=== PATIENT | male | born 1960 | race Caucasian/White ===

== ENCOUNTER → 2017-02-04 | Outpatient (CLI) | payer MEDICARE, OTHER ==
--- NOTE | 2017-02-05 09:31 | PN ---
57-year-old male patient coming in for a follow-up regarding his obstructive sleep apnea. The patient was diagnosed having mild to moderate ARIANA with an AHI of 15.8. He is also known to have chronic bronchitis/asthmatic bronchitis. I offered this patient CPAP therapy at a pressure of 11 cm of water. I noted that the patient is having some occasional difficulties. On today's evaluation, the patient is also bronchospastic and wheezy and is having some exacerbation of his acute asthmatic bronchitis. Note that he has been also gaining weight and I have noted at least 22 pounds weight since his last evaluation. I checked his CPAP compliance data, and over the past 30 days' his compliancy for more than 4 hours was only 33%. His average CPAP use on total days was 2 hours and 41 minutes and total days use was 6 hours and 42 minutes. His AHI while on treatment is down to 2.0. His leak factor is only 1.6 liters. I suspect as part of his poor compliance has been his increased shortness of breath and asthmatic bronchitis. His current vital signs are as follows: His temperature is 98.6, pulse 84, respirations 16, BP is 110/75. BMI is 46.3. Weight is 287. Height is 5 foot 6. GENERAL APPEARANCE: Obese, calm, comfortable. HEENT: Short neck, crowding posterior pharynx. There is no goiter or neck masses. LUNGS: Diminished breath sounds bilaterally. Scattered expiratory wheezes and prolongation of expiratory phase of breathing. HEART: Heart sounds are regular rate. Normal S1, S2. ABDOMEN: Soft, nontender. No organomegaly. EXTREMITIES: No edema. No cyanosis or clubbing. IMPRESSION: 1. Symptomatic obstructive sleep apnea with an AHI of 15.8 currently on CPAP pressure of 11 cm of water. 2. Chronic asthmatic bronchitis with acute exacerbation. 3. Difficulties in tolerating the CPAP. 4. Hypersomnia. 5. Obesity with interval weight gain in the order of 21 to 22 pounds. PLAN: 1. Encourage weight loss. 2. Optimize exacerbation of chronic asthmatic bronchitis by Symbicort and a prednisone burst taper to be started x 40 mg and tapered x 10 mg every 3 days. 3. Continue Simplus full face mask. 4. Lower the CPAP pressure down to 10 cm of water. 5. Encourage weight loss. 6. See me back in 4 to 6 weeks' time in follow-up. 7. Anticipate improvement in his compliancy data.
== END ==
LOC: SLEEP 14:33
PROVIDERS: ATTEND Internal Medicine Critical Care Medicine
DX: G47.33 Obstructive sleep apnea (adult) (pediatric) (principal); J45.901 Unspecified asthma with (acute) exacerbation; G47.10 Hypersomnia, unspecified; E66.9 Obesity, unspecified

== ENCOUNTER 2017-03-17 15:00 | Inpatient (IN) | payer MEDICARE, OTHER ==
--- NOTE | 2017-03-17 15:12 | ED ---
General Adult HPI - General Source: patient Mode of arrival: wheelchair Limitations: no limitations <Claudio Alcocer - Last Filed: 03/17/17 15:12> - General Source: patient, family, RN notes reviewed <Parmjit Leach - Last Filed: 03/17/17 17:00> - General Chief complaint: Chest Pain Stated complaint: Chest Pain - History of Present Illness Initial comments: 57-year-old male presents with a two-hour history of upper chest pain and bilateral shoulder pain. Patient describes the pain as dull. Associated with shortness of breath. Denies cough. Denies palpitations. Chest pain began at rest. No family history of CAD myocardial infarction. Patient does have a remote tobacco history, quit 2 years ago. Patient believes the stress test is really is several weeks ago. Denies nausea, denies vomiting or diarrhea. Past medical history of COPD and obstructive sleep apnea. (Parmjit Leach) - Related Data Home Medications Medication Instructions Recorded Confirmed Omeprazole [PriLOSEC] 20 mg PO AC-BID 05/29/16 03/17/17 QUEtiapine [SEROquel] 200 mg PO HS 05/29/16 03/17/17 Budesonide-Formot 160-4.5 Mcg 2 puff INHALATION RT-BID 03/17/17 03/17/17 [Symbicort 160-4.5 Mcg Inhaler] Levothyroxine Sodium 25 mcg PO DAILY 03/17/17 03/17/17 Sertraline [Zoloft] 50 mg PO DAILY 03/17/17 03/17/17 Allergies Allergy/AdvReac Type Severity Reaction Status Date / Time No Known Allergies Allergy Verified 03/17/17 15:52 Review of Systems ROS Other: All systems not noted in ROS Statement are negative. <Claudio Alcocer - Last Filed: 03/17/17 15:12> ROS Other: All systems not noted in ROS Statement are negative. Cardiovascular: Reports: chest pain. Denies: palpitations <Parmjit Leach - Last Filed: 03/17/17 17:00> ROS Statement: Those systems with pertinent positive or pertinent negative responses have been documented in the HPI. Past Medical History Past Medical History: COPD, GERD/Reflux, Osteoarthritis (OA), Pneumonia History of Any Multi-Drug Resistant Organisms: None Reported Past Surgical History: Orthopedic Surgery Additional Past Surgical History / Comment(s): lt rotator cuff,02, lt hip replacment 1999, colonoscopy/plypectomy(benign), rt hand sx had pins removed Past Anesthesia/Blood Transfusion Reactions: No Reported Reaction Past Psychological History: Anxiety Smoking Status: Former smoker Past Alcohol Use History: Occasional Past Drug Use History: Marijuana, Methamphetamine - Past Family History Father Family Medical History: CVA/TIA, Diabetes Mellitus Additional Family Medical History / Comment(s): dads brothers x 2 had strokes as well as 1 sister Mother Family Medical History: Eye Disorder, Osteoarthritis (OA) Additional Family Medical History / Comment(s): cataracts <Claudio Alcocer - Last Filed: 03/17/17 15:12> General Exam Limitations: no limitations <Claudio Alcocer - Last Filed: 03/17/17 15:12> Limitations: no limitations General appearance: alert, in no apparent distress Head exam: Present: atraumatic, normocephalic Eye exam: Present: normal appearance, PERRL ENT exam: Present: normal exam, mucous membranes moist Neck exam: Present: normal inspection, full ROM. Absent: tenderness Respiratory exam: Present: normal lung sounds bilaterally. Absent: respiratory distress Cardiovascular Exam: Present: normal rhythm, tachycardia GI/Abdominal exam: Present: soft, distended. Absent: tenderness, guarding Neurological exam: Present: alert, oriented X3, CN II-XII intact. Absent: motor sensory deficit Psychiatric exam: Present: normal affect, normal mood Skin exam: Present: warm, diaphoretic <Parmjit Leach - Last Filed: 03/17/17 17:00> Course <Claudio Alcocer C - Last Filed: 03/17/17 15:12> <Parmjit Leach - Last Filed: 03/17/17 17:00> Vital Signs 03/17/17 03/17/17 03/17/17 15:08 15:20 15:53 Temperature 98.6 F Pulse Rate 65 92 Pulse Rate [ 187 H Scrap Sawyer ] Respiratory 17 Rate Blood Pressure 104/76 O2 Sat by Pulse 96 Oximetry - Reevaluation(s) Reevaluation #1: 03/17/17 16:56 After adenosine and return to normal sinus rhythm, patient's chest pain and bilateral shoulder pain has resolved. (Parmjit Leach) EKG Findings - EKG Comments: EKG Findings:: EKG obtained at 1519 shows superventricular tachycardia with a ventricular rate of 173, QRS duration is 80, QTc is 441. EKG obtained at 1535 status post adenosine shows sinus tachycardia with a ventricular rate of 4, TX interval 142, QRS duration 84, QTC 428, no signs of ST segment elevation or depression. EKG obtained at 1614 shows normal sinus rhythm with a ventricular 94, TX interval 138, QRS duration 84, QTC 445, no T-wave abnormality, no ST segment elevation. <Parmjit Leach - Last Filed: 03/17/17 17:00> Medical Decision Making <Claudio Alcocer - Last Filed: 03/17/17 15:12> - Lab Data Result diagrams: 03/17/17 15:30 03/17/17 15:30 <Parmjit Leach - Last Filed: 03/17/17 17:00> - Medical Decision Making 57-year-old male presenting with upper chest pain and bilateral shoulder pain. Patient is found to be in SVT with a ventricular rate of 173. IV is established and patient is given adenosine 6N saw by 12 mg with return to normal sinus rhythm. Several minutes after return to sinus rhythm patient is pain-free. Denies chest pain or shortness of breath. Patient has brief episode of bigeminy with a ventricular rate in the 170s on the monitor. However after the nasal replaced and repeat EKG is obtained there is normal sinus rhythm with no bigeminy, no tachycardia. Laboratory studies including cardiac enzymes are within normal limits. Given the patient's chest pain with tachycardia he will be placed in observation for serial cardiac enzymes and cardiology consult. Chest x-ray shows no acute process. (Parmjit Leach) - Lab Data Lab Results 03/17/17 03/17/17 03/17/17 Range/Units 15:30 15:30 15:30 WBC 10.9 H (3.8-10.6) k/uL RBC 5.77 (4.30-5.90) m/uL Hgb 13.3 (13.0-17.5) gm/dL Hct 44.0 (39.0-53.0) % MCV 76.3 L (80.0-100.0) fL MCH 23.0 L (25.0-35.0) pg MCHC 30.1 L (31.0-37.0) g/dL RDW 16.8 H (11.5-15.5) % Plt Count 309 (150-450) k/uL Neutrophils % 71 % Lymphocytes % 21 % Monocytes % 5 % Eosinophils % 1 % Basophils % 1 % Neutrophils # 7.8 H (1.3-7.7) k/uL Lymphocytes # 2.3 (1.0-4.8) k/uL Monocytes # 0.5 (0-1.0) k/uL Eosinophils # 0.1 (0-0.7) k/uL Basophils # 0.1 (0-0.2) k/uL Hypochromasia Marked Anisocytosis Slight Microcytosis Slight PT (9.0-12.0) sec INR (<1.2) APTT (22.0-30.0) sec Sodium 141 (137-145) mmol/L Potassium 4.0 (3.5-5.1) mmol/L Chloride 108 H (98-107) mmol/L Carbon Dioxide 21 L (22-30) mmol/L Anion Gap 12 mmol/L BUN 13 (9-20) mg/dL Creatinine 1.25 (0.66-1.25) mg/dL Est GFR (MDRD) Af Amer >60 (>60 ml/min/1.73 sqM) Est GFR (MDRD) Non-Af 59 (>60 ml/min/1.73 sqM) Glucose 115 H (74-99) mg/dL Calcium 9.4 (8.4-10.2) mg/dL Magnesium 1.9 (1.6-2.3) mg/dL Total Bilirubin 0.5 (0.2-1.3) mg/dL AST 30 (17-59) U/L ALT 37 (21-72) U/L Alkaline Phosphatase 89 (38-126) U/L Total Creatine Kinase 204 H (55-170) U/L CK-MB (CK-2) 0.5 (0.0-2.4) ng/mL CK-MB (CK-2) Rel Index 0.2 Troponin I <0.012 (0.000-0.034) ng/mL NT-Pro-B Natriuret Pep pg/mL Total Protein 7.6 (6.3-8.2) g/dL Albumin 4.5 (3.5-5.0) g/dL 03/17/17 03/17/17 Range/Units 15:30 15:30 WBC (3.8-10.6) k/uL RBC (4.30-5.90) m/uL Hgb (13.0-17.5) gm/dL Hct (39.0-53.0) % MCV (80.0-100.0) fL MCH (25.0-35.0) pg MCHC (31.0-37.0) g/dL RDW (11.5-15.5) % Plt Count (150-450) k/uL Neutrophils % % Lymphocytes % % Monocytes % % Eosinophils % % Basophils % % Neutrophils # (1.3-7.7) k/uL Lymphocytes # (1.0-4.8) k/uL Monocytes # (0-1.0) k/uL Eosinophils # (0-0.7) k/uL Basophils # (0-0.2) k/uL Hypochromasia Anisocytosis Microcytosis PT 10.4 (9.0-12.0) sec INR 1.0 (<1.2) APTT 25.0 (22.0-30.0) sec Sodium (137-145) mmol/L Potassium (3.5-5.1) mmol/L Chloride (98-107) mmol/L Carbon Dioxide (22-30) mmol/L Anion Gap mmol/L BUN (9-20) mg/dL Creatinine (0.66-1.25) mg/dL Est GFR (MDRD) Af Amer (>60 ml/min/1.73 sqM) Est GFR (MDRD) Non-Af (>60 ml/min/1.73 sqM) Glucose (74-99) mg/dL Calcium (8.4-10.2) mg/dL Magnesium (1.6-2.3) mg/dL Total Bilirubin (0.2-1.3) mg/dL AST (17-59) U/L ALT (21-72) U/L Alkaline Phosphatase (38-126) U/L Total Creatine Kinase (55-170) U/L CK-MB (CK-2) (0.0-2.4) ng/mL CK-MB (CK-2) Rel Index Troponin I (0.000-0.034) ng/mL NT-Pro-B Natriuret Pep 82 pg/mL Total Protein (6.3-8.2) g/dL Albumin (3.5-5.0) g/dL Disposition <Claudio Alcocer - Last Filed: 03/17/17 15:12> Decision to Admit Reason: Admit from EC Decision Date: 03/17/17 Decision Time: 16:50 <Parmjit Leach - Last Filed: 03/17/17 17:00> Clinical Impression: SVT (supraventricular tachycardia), Chest pain Disposition: ADMITTED IP TO THIS [facility] Condition: Stable Referrals: Inge Goodwin MD [Primary Care Provider] - 1-2 days
[2017-03-17] MEDS ORDERED: ADENOSINE 3 MG/ML 2 ML VIAL IVP STA ×4 (15:33→16:00)
[2017-03-17 15:50] LABS: Anisocytosis Slight; Basophils # (A) 0.1 k/uL (0-0.2); Basophils % (A) 1 %; CH 22.8; Eosinophils # (A) 0.1 k/uL (0-0.7); Eosinophils % (A) 1 %; HDW 3.12; HGB 13.3 gm/dL (13.0-17.5); Hypochromasia Marked; Luc # (Auto) 0.11; Luc % (Auto) 1; Lymphocytes # (A) 2.3 k/uL (1.0-4.8); Lymphocytes % (A) 21 %; MCHC 30.1 g/dL (31.0-37.0); MCV 76.3 fL (80.0-100.0); Microcytosis Slight; Monocytes # (A) 0.5 k/uL (0-1.0); Monocytes % (A) 5 %; Neutrophils # (A) 7.8 k/uL (1.3-7.7); Neutrophils % (A) 71 %; RBC 5.77 m/uL (4.30-5.90); RDW 16.8 % (11.5-15.5); WBC 10.9 k/uL (3.8-10.6); WBC (Perox) 10.58
[2017-03-17 16:00] LABS: Prothrombin Time 10.4 sec (9.0-12.0)
[2017-03-17 16:01] LABS: ALT 37 U/L (21-72); AST 30 U/L (17-59); Alkaline Phosphatase 89 U/L (38-126); Anion Gap 12 mmol/L; Blood Urea Nitrogen 13 mg/dL (9-20); Calcium 9.4 mg/dL (8.4-10.2); Carbon Dioxide 21 mmol/L (22-30); Chloride 108 mmol/L (98-107); Glucose 115 mg/dL (74-99); Magnesium 1.9 mg/dL (1.6-2.3); Non-African American GFR(MDRD) 59 (>60 ml/min/1.73 sqM); Sodium 141 mmol/L (137-145); Total Bilirubin 0.5 mg/dL (0.2-1.3); Total Protein 7.6 g/dL (6.3-8.2)
[2017-03-17 16:05] LABS: Creatine Kinase 204 U/L (55-170)
[2017-03-17 16:17] LABS: Creatine Kinase MB 0.5 ng/mL (0.0-2.4); Troponin I <0.012 ng/mL (0.000-0.034)
--- NOTE | 2017-03-17 16:18 | XR ---
EXAMINATION TYPE: XR chest 2V DATE OF EXAM: 03/17/2017 COMPARISON: Chest x-ray May 29, 2016. Additional outside chest x-ray June 06, 2016. HISTORY: History of COPD with chest pain today with elevated heart rate. TECHNIQUE: Frontal and lateral views of the chest are obtained. FINDINGS: There is chronic parenchymal and emphysematous change with right midlung triangular shaped consolidation laterally redemonstrated not significantly changed from prior exams. Consider CT correl ation. There is no new suspicious focal air space opacity, pleural effusion, or pneumothorax seen. T he cardiac silhouette size is upper limits of normal currently. The osseous structures are somewhat demineralized. IMPRESSION: Chronic changes without acute pulmonary process.
[2017-03-17] MEDS ORDERED: ONDANSETRON 4 MG/2 ML VIAL IVP PRN (16:45)
[2017-03-17] MEDS ORDERED: NALOXONE 0.4 MG/ML 1 ML VIAL IV PRN (16:45)
[2017-03-17] MEDS: DEXTROSE 5%-0.45% NACL 1,000 ML IV SCH (17:00)
[2017-03-17 18:11] VITALS: BMI 46.7
[2017-03-17] MEDS ORDERED: IPRATROPIUM-ALBUTEROL 3 ML NEB INHALATION PRN (19:52)
[2017-03-17] MEDS: traMADol 50 MG TAB PO PRN (20:15)
[2017-03-17] MEDS: SYMBICORT 160-4.5 MCG INHALER INHALATION SCH (20:21)
[2017-03-17] MEDS: IPRATROPIUM-ALBUTEROL 3 ML NEB INHALATION SCH (20:22)
[2017-03-17] MEDS ORDERED: QUEtiapine 200 MG TAB PO SCH (21:00)
[2017-03-17 23:02] LABS: Creatine Kinase MB 1.2 ng/mL (0.0-2.4); Troponin I 0.032 ng/mL (0.000-0.034)
[2017-03-17 23:42] VITALS: RESP 18
[2017-03-18 04:04] LABS: Creatine Kinase MB 1.4 ng/mL (0.0-2.4)
[2017-03-18 04:23] LABS: Troponin I 0.036 ng/mL (0.000-0.034)
[2017-03-18] MEDS ORDERED: ATENOLOL 50 MG TAB PO STA (05:22)
--- NOTE | 2017-03-18 06:37 | P.CRDCN ---
History of Present Illness Consult reason: chest pain Chief complaint: presyncope, svt History of present illness: Called regarding patient experiencing shoulder discomfort in the early hours in the morning Impression Documented supra-ventricular tachycardia, very symptomatic with dizziness chest discomfort and jaw discomfort and a delayed borderline troponin rise Adenosine sensitive SVT Nondiabetic No history of hypertension Past history of smoking not smoking at this time COPD Baseline shortness of breath and exertional Obstructive sleep apnea Regular alcohol use Plan Atenolol 50 mg by mouth daily Lexiscan Cardiolite stress test May go home this is normal I will see him in the office in follow-up In view of asymptomatic SVT associated with presyncope chest discomfort radiating to the jaw I would advise an EP study and ablation Past Medical History Past Medical History: COPD, GERD/Reflux, Osteoarthritis (OA), Pneumonia, Sleep Apnea/CPAP/BIPAP Additional Past Medical History / Comment(s): pt uses cpap, enlarged thyroid History of Any Multi-Drug Resistant Organisms: None Reported Past Surgical History: Orthopedic Surgery Additional Past Surgical History / Comment(s): lt rotator cuff ', lt hip replacment 1999, colonoscopy/plypectomy(benign), rt hand sx had pins removed Past Anesthesia/Blood Transfusion Reactions: No Reported Reaction Past Psychological History: Anxiety, Depression Smoking Status: Former smoker Past Alcohol Use History: Occasional Past Drug Use History: Marijuana, Methamphetamine - Past Family History Father Family Medical History: CVA/TIA, Diabetes Mellitus Additional Family Medical History / Comment(s): dads brothers x 2 had strokes as well as 1 sister Mother Family Medical History: Eye Disorder, Osteoarthritis (OA) Additional Family Medical History / Comment(s): cataracts Medications and Allergies Home Medications Medication Instructions Recorded Confirmed Type Omeprazole [PriLOSEC] 20 mg PO AC-BID 05/29/16 03/17/17 History QUEtiapine [SEROquel] 200 mg PO HS 05/29/16 03/17/17 History Budesonide-Formot 160-4.5 Mcg 2 puff INHALATION RT-BID 03/17/17 03/17/17 History [Symbicort 160-4.5 Mcg Inhaler] Levothyroxine Sodium 25 mcg PO DAILY 03/17/17 03/17/17 History Sertraline [Zoloft] 50 mg PO DAILY 03/17/17 03/17/17 History Allergies Allergy/AdvReac Type Severity Reaction Status Date / Time No Known Allergies Allergy Verified 03/17/17 15:52 Physical Exam Vitals: Vital Signs Temp Pulse Pulse Pulse Resp BP BP 03/18/17 04:00 66 18 03/18/17 03:48 98.3 F 71 18 121/69 03/18/17 00:00 78 18 03/17/17 23:41 98.4 F 87 18 135/65 03/17/17 20:00 87 16 03/17/17 19:47 98.7 F 82 16 129/79 03/17/17 18:21 82 14 03/17/17 17:56 98.9 F 82 14 140/95 03/17/17 17:33 98.9 F 82 16 129/66 03/17/17 17:09 84 133/80 03/17/17 15:53 92 03/17/17 15:36 172 H 137/82 03/17/17 15:20 187 H 03/17/17 15:08 98.6 F 65 17 104/76 Pulse Ox 03/18/17 04:00 03/18/17 03:48 95 03/18/17 00:00 03/17/17 23:41 94 L 03/17/17 20:00 03/17/17 19:47 95 03/17/17 18:21 03/17/17 17:56 97 03/17/17 17:33 97 03/17/17 17:09 97 03/17/17 15:53 03/17/17 15:36 98 03/17/17 15:20 03/17/17 15:08 96 Intake and Output 03/17/17 03/17/17 03/18/17 14:59 22:59 06:59 Other: Voiding Method Toilet Toilet # Voids 2 Weight 131.2 kg 130.8 kg Patient Weight 03/18/17 06:59 Weight 130.8 kg Results 03/17/17 15:30 03/17/17 15:30 Cardiac Enzymes 03/17/17 03/17/17 03/17/17 Range/Units 15:30 15:30 22:16 AST 30 (17-59) U/L CK-MB (CK-2) 0.5 1.2 (0.0-2.4) ng/mL Troponin I <0.012 0.032 (0.000-0.034) ng/mL 03/18/17 Range/Units 03:14 AST (17-59) U/L CK-MB (CK-2) 1.4 (0.0-2.4) ng/mL Troponin I 0.036 H* (0.000-0.034) ng/mL Coagulation 03/17/17 Range/Units 15:30 PT 10.4 (9.0-12.0) sec APTT 25.0 (22.0-30.0) sec CBC 03/17/17 Range/Units 15:30 WBC 10.9 H (3.8-10.6) k/uL RBC 5.77 (4.30-5.90) m/uL Hgb 13.3 (13.0-17.5) gm/dL Hct 44.0 (39.0-53.0) % Plt Count 309 (150-450) k/uL Comprehensive Metabolic Panel 03/17/17 Range/Units 15:30 Sodium 141 (137-145) mmol/L Potassium 4.0 (3.5-5.1) mmol/L Chloride 108 H (98-107) mmol/L Carbon Dioxide 21 L (22-30) mmol/L BUN 13 (9-20) mg/dL Creatinine 1.25 (0.66-1.25) mg/dL Glucose 115 H (74-99) mg/dL Calcium 9.4 (8.4-10.2) mg/dL AST 30 (17-59) U/L ALT 37 (21-72) U/L Alkaline Phosphatase 89 (38-126) U/L Total Protein 7.6 (6.3-8.2) g/dL Albumin 4.5 (3.5-5.0) g/dL Current Medications Generic Name Dose Route Start Last Admin Trade Name Freq PRN Reason Stop Dose Admin Albuterol/Ipratropium 3 ml 03/17/17 20:00 03/17/17 20:22 Duoneb 0.5 Mg-3 Mg/3 Ml Soln INHALATION Not Given RT-QID EFREN Albuterol/Ipratropium 3 ml 03/17/17 19:52 Duoneb 0.5 Mg-3 Mg/3 Ml Soln INHALATION RT-Q2H PRN Shortness Of Breath Or Wheezing Atenolol 50 mg 03/18/17 09:00 Tenormin PO DAILY EFREN Budesonide/Formoterol Fumarate 2 puff 03/17/17 20:00 03/17/17 20:21 Symbicort 160-4.5 Mcg Inhaler INHALATION 2 puff RT-BID EFREN Administration Dextrose/Sodium Chloride 1,000 mls @ 75 mls/hr 03/17/17 16:45 03/17/17 17:00 Dextrose 5%-1/2ns Iv Soln IV 75 mls/hr .[id number] EFREN Administration Naloxone HCl 0.2 mg 03/17/17 16:45 Narcan IV Q2M PRN Opioid Reversal Pantoprazole Sodium 40 mg 03/18/17 07:30 Protonix PO AC-BRKFST EFREN Quetiapine Fumarate 200 mg 03/17/17 21:00 03/17/17 20:15 Seroquel PO 200 mg HS EFREN Administration Tramadol HCl 50 mg 03/17/17 19:49 03/17/17 20:15 Ultram PO 50 mg Q6H PRN Administration Pain Intake and Output 03/17/17 03/17/17 03/18/17 14:59 22:59 06:59 Other: Voiding Method Toilet Toilet # Voids 2 Weight 131.2 kg 130.8 kg Patient Weight 03/18/17 06:59 Weight 130.8 kg 03/17/17 15:30 03/17/17 15:30
[2017-03-18] MEDS ORDERED: AMINOPHYLLINE 500 MG/20 ML VIAL IV PRN (06:47)
[2017-03-18] MEDS ORDERED: REGADENOSON 0.4 MG/5 ML SYRINGE IV ONE (06:47)
[2017-03-18] MEDS ORDERED: PANTOPRAZOLE 40 MG TABLET PO SCH (07:30)
[2017-03-18] MEDS: SYMBICORT 160-4.5 MCG INHALER INHALATION SCH ×2 (07:32→07:38)
[2017-03-18] MEDS: IPRATROPIUM-ALBUTEROL 3 ML NEB INHALATION SCH ×4 (07:33→16:04)
--- NOTE | 2017-03-18 07:34 | CONS ---
Mr. Jalen Zaman is a 57-year-old male patient who came to the hospital complaining of sudden onset of chest discomfort radiating to jaw associated with shortness of breath and presyncope. He was sitting watching television when he had sudden onset of the symptoms. He came to the emergency room and he was found to be in supraventricular tachycardia with a rate of 173 beats a minute, narrow QRS without clear cut P waves. He was treated with IV adenosine with abrupt termination and resolution of the symptoms. He was admitted last year in May with chest discomfort and palpitation, but no clear cut diagnosis made at that time. He had a dobutamine stress echo, which did not show any evidence of ischemia. At this time, he is pain free. He has some discomfort in the shoulder related to his rotator cuff injuries. Past history of COPD related to smoking. He has stopped smoking now. Past history of methamphetamine and marijuana use and obstructive sleep apnea. No history of diabetes. No history of hypertension. Does not know if he has dyslipidemia. He has a long standing history of smoking, but has stopped smoking now. Medications include Xanax, inhalers, hydrocodone, omeprazole and Seroquel. No known drug allergies. REVIEW OF SYSTEMS: No fever, chills or rigors. No cough or expectoration. No nausea, vomiting, or diarrhea. No hematuria or dysuria. No strokes or seizures. On examination, his vitals at this time are stable. His heart rate is in the 60s. Temperature is 98.3 degrees Fahrenheit. Respirations are normal. Blood pressure 121/69 mmHg. Head and neck examination is normal. Heart sounds are S1 and S2 soft. Lungs showed decreased breath sounds bilaterally without rhonchi or crackles. Abdomen is soft and nontender. Extremities are warm. He is obese. His BMI is 46.5. IMPRESSION: 1. Narrow complex supraventricular tachycardia, symptomatic with presyncope, shortness of breath and chest discomfort going to the jaw with ( ) resolution after injection of adenosine. 2. History of obstructive sleep apnea. 3. Body mass index of 46.5. 4. Chronic obstructive pulmonary disease secondary to smoking. Patient has stopped smoking now. 5. History of regular alcohol use. Labs are reviewed. His white count is 10.9, hemoglobin is 13.3. Electrolytes are normal. CPK showed mild increase from 204, 230, 265 and troponin shows slight increased 0.036. BNP is normal. SUGGEST: TSH level, atenolol 50 mg p.o. daily and Lexiscan Cardiolite stress test today. If this is normal, he may go home and he should definitely consider an EP study and ablation given the symptoms associated with his SVT. ITZEL
[2017-03-18] MEDS ORDERED: ATENOLOL 50 MG TAB PO SCH (09:00)
--- NOTE | 2017-03-18 11:32 | P.STRESS ---
- Stress Test Note Stress Test Results/Findings: Exam Performed: NM stress lexiscan cardiolite Exam Date: 03/18/17 Height: 5 ft 6 in Weight: 130.8 kg Protocol: JULIO Stage: N/A Duration of Exercise: N/A Resting Heart Rate: 57 Resting Blood Pressure: 117/76 Maximum Achieved Heart Rate: 69 Maximum Achieved Blood Pressure: 172/75 85% PMHR: 138 100% PMHR: 162 METS: N/A Technologist Comment: Stress Test Results/Findings: Baseline rhythm is sinus mechanism, normal axis and intervals. The patient received an injection of Lexiscan, Cardiolite was injected per protocol. EKG monitoring shows no acute ST segment changes. Impression: 1. Nondiagnostic EKG stress test. 2. Nuclear images will be reported separately.
--- NOTE | 2017-03-18 11:55 | NM ---
EXAMINATION TYPE: NM stress Lexiscan cardiolite DATE OF EXAM: 03/18/2017 COMPARISON: NONE HISTORY: Chest pain radiating into the jaw. TECHNIQUE: After the intravenous administration of 10.89 mCi Tc 99m Sestamibi - Cardiolite resting S PECT images acquired 45 minutes post injection. The patient received 0.4mg Lexiscan, 27.3 mCi Tc 99m Sestamibi - Stress images obtained [address] injection FINDINGS: There is good uptake of radiopharmaceutical by the left ventricle without fixed filling def ect. There is no convincing inducible ischemic change. Wall motion is normal and ejection fraction is normal at 53% IMPRESSION: I DO NOT SEE CONVINCING EVIDENCE OF INDUCIBLE ISCHEMIC CHANGE AT THIS TIME.
[2017-03-18] MEDS: DEXTROSE 5%-0.45% NACL 1,000 ML IV SCH (12:28)
[2017-03-18] MEDS: traMADol 50 MG TAB PO PRN (12:29)
[2017-03-18 15:55] VITALS: BP 108/71; PULSE 61; TEMP 98.7
--- NOTE | 2017-03-18 22:42 | HP ---
CHIEF COMPLAINT: Dizziness and chest pain. HISTORY OF ILLNESS: Mr. Zaman is a 57-year-old male with a known history of obstructive sleep apnea, on CPAP at home, depression and COPD, and previous history of smoking. He came to the hospital with complaints of chest pain radiating to the jaw as well as shortness of breath and near-syncope. The patient was sitting and watching television at the time. He started suddenly having heart racing fast and he felt dizzy, which made him come to the hospital. The patient was found to be in supraventricular tachycardia with a heart rate of 173 and narrow QRS complex. The patient was given adenosine, with relief of symptoms. The patient denied any complaints of recent illness or sick contacts at home. No cough or sputum production. The patient does not have any history of SVT in the past. He had a dobutamine stress echocardiogram in May 2016 which did not show any evidence of ischemia. Patient was seen by Cardiology, who recommended a nuclear stress test, which was done today. REVIEW OF SYSTEMS: CONSTITUTIONAL: No fever. No chills. No generalized weakness or fatigue. RESPIRATORY: No cough or sputum production. No complaints of shortness of breath. GASTROINTESTINAL: No nausea, vomiting, abdominal pain. No diarrhea. CARDIOVASCULAR: No chest pain. Patient did have palpitations. No leg swelling. GENITOURINARY: No dysuria. No hematuria. ENDOCRINE: No heat or cold intolerance. PSYCHIATRY: Negative. MUSCULOSKELETAL: Negative. NEUROLOGIC: Negative. All other 14-point review of systems negative except as above. PAST MEDICAL HISTORY: 1. COPD. 2. Obstructive sleep apnea, on CPAP. 3. GERD. 4. Osteoarthritis. 5. History of pneumonia. PAST SURGICAL HISTORY: 1. Orthopedic surgery. 2. Left rotator cuff. 3. Left hip replacement in 1999. 4. Colonoscopy with polypectomy, benign. 5. Right hand surgery; had pins removed. PSYCHOSOCIAL HISTORY: Anxiety. SOCIAL HISTORY: Patient is a former smoker. Currently denied any smoking. Occasional alcohol use. Denied any drugs or IVDU. Patient did use marijuana and amphetamine previously. FAMILY HISTORY: Father had CVA and diabetes mellitus. Uncles had 2 strokes as well as one sister. Brother has hypertension. Mother had eye disorder and osteoarthritis and cataracts. ALLERGIES: NO DRUG ALLERGIES. Home medications include: 1. Omeprazole. 2. Seroquel. 3. Symbicort. 4. Levothyroxine. 5. Zoloft. PHYSICAL EXAMINATION: F[age][id number][age]uccd-old male. Awake, alert, oriented x3. Appears to be in no distress. VITALS: Blood pressure 113/67, pulse rate 50, respiration 18, temperature afebrile, pulse ox 96% on room air. HEENT: Atraumatic, normocephalic. Neck is supple. No JVD. CVS EXAM: S1, S2 heard. No murmurs. No gallop. No rub. LUNGS: Bilateral air entry is present. No wheezing. No crackles. Non-labored breathing. ABDOMEN: Soft, obese. Bowel sounds are present. MARINE ARCHITECT: Awake, alert, oriented x3. No focal deficit. EXTREMITIES: No edema. Pulses palpable bilaterally. No clubbing or cyanosis. PSYCHIATRIC: Cooperative. LABORATORY DATA: WBC 10.9, hemoglobin 13.3. RDW 16.8. Platelets 309. INR 1.0. Sodium 141, potassium 4.0. Chloride 108. Bicarb is 21. BUN 13, creatinine 1.25. Troponin less than 0.012 and 0.032 and 0.036. TSH 1.260. IMPRESSION: 1. Presyncope secondary to supraventricular tachycardia. 2. Narrow complex supraventricular tachycardia. 3. Chest discomfort into the jaw. 4. Obstructive sleep apnea, on CPAP at home. 5. Morbid obesity with a body mass index of 46.5. 6. Chronic obstructive pulmonary disease, stable at this time. 7. Previous history of smoking. 8. Previous history of alcohol abuse. 9. History of marijuana and methamphetamine use. DISCUSSION AND PLAN: Patient was treated with adenosine while in the ER, with resolution of supraventricular tachycardia. Patient was started on atenolol [address] Case has seen the patient and recommended EP study and ablation as an outpatient. Otherwise, patient underwent Lexiscan stress test today. Will continue the current management. TSH was within normal limits. Further recommendations based on the clinical course. [facility]
== END 2017-03-18 16:31 | disposition home or self-care (01) | DRG 309 ==
LOC: EC 15:00 → 3OBS 16:45 → OBSVTOIN 03-18 12:56
PROVIDERS: ADMIT Hospitalist; ATTEND Hospitalist
DX: I47.1 Supraventricular tachycardia (principal); Z68.42 Body mass index [BMI] 45.0-49.9, adult; E66.01 Morbid (severe) obesity due to excess calories; J44.9 Chronic obstructive pulmonary disease, unspecified; G47.33 Obstructive sleep apnea (adult) (pediatric); K21.9 Gastro-esophageal reflux disease without esophagitis; F41.9 Anxiety disorder, unspecified; F32.9 Major depressive disorder, single episode, unspecified; M19.91 Primary osteoarthritis, unspecified site; Z87.01 Personal history of pneumonia (recurrent); Z96.642 Presence of left artificial hip joint; Z87.891 Personal history of nicotine dependence; Z87.898 Personal history of other specified conditions; Z79.51 Long term (current) use of inhaled steroids; Z79.899 Other long term (current) drug therapy; Z82.49 Family history of ischemic heart disease and other diseases of the circulatory system
CPT/HCPCS: 36415; 71020; 78452; 80053; 82550; 82553; 83735; 83880; 84443; 84484; 85025; 85610; 85730; 93005; 93017; 94640; 96361; 96374; 99285

== ENCOUNTER → 2017-05-14 | Outpatient (CLI) | payer MEDICARE, OTHER ==
[2017-05-14 15:45] LABS: Anisocytosis Slight; CH 23.1; CHCM 30.8; HCT 39.6 % (39.0-53.0); HDW 3.15; HGB 12.2 gm/dL (13.0-17.5); Hypochromasia Moderate; MCH 23.3 pg (25.0-35.0); MCHC 30.8 g/dL (31.0-37.0); MCV 75.6 fL (80.0-100.0); Mean Platelet Volume 7.7; Microcytosis Slight; RBC 5.24 m/uL (4.30-5.90); WBC 7.4 k/uL (3.8-10.6)
[2017-05-14 15:59] LABS: Anion Gap 11 mmol/L; Blood Urea Nitrogen 11 mg/dL (9-20); Calcium 9.6 mg/dL (8.4-10.2); Carbon Dioxide 25 mmol/L (22-30); Chloride 106 mmol/L (98-107); Glucose 98 mg/dL (74-99); Non-African American GFR(MDRD) >60 (>60 ml/min/1.73 sqM); Potassium 4.2 mmol/L (3.5-5.1); Sodium 142 mmol/L (137-145)
== END | disposition home or self-care (01) ==
LOC: LABWHC1 15:20
PROVIDERS: ATTEND Internal Medicine Clinical Cardiac Electrophysiology
DX: I47.1 Supraventricular tachycardia (principal)
CPT/HCPCS: 36415; 80048; 85027

== ENCOUNTER 2017-05-26 11:05 | Day surgery (SDC) | payer MEDICARE, OTHER ==
[2017-05-21 11:43] VITALS: BMI 47.0
[2017-05-26] MEDS: SODIUM CHLORIDE 0.9% 1,000 ML IV SCH (11:55)
[2017-05-26] MEDS ORDERED: PHENYLEPHRINE-0.9% NACL SYG 1 MG/10 ML SYRINGE ONE (14:38)
[2017-05-26] MEDS ORDERED: VECURONIUM 10 MG VIAL IV ONE (14:38)
[2017-05-26] MEDS ORDERED: GLYCOPYRROLATE 0.2 MG/ML 2 ML VIAL ONE (14:38)
[2017-05-26] MEDS ORDERED: ePHEDrine SULFATE/0.9% NACL/PF 50 MG/5 ML SYRINGE IV ONE (14:38)
[2017-05-26] MEDS ORDERED: HEPARIN SODIUM,PORCINE 5,000 UNIT/ML 1 ML VIAL ONE (14:38)
[2017-05-26] MEDS ORDERED: fentaNYL (PF) 50 MCG/ML 2 ML AMP ONE (14:38)
[2017-05-26] MEDS ORDERED: PROPOFOL 10 MG/ML 20 ML VIAL IV ONE (14:38)
[2017-05-26] MEDS ORDERED: NEOSTIGMINE 1 MG/ML 10 ML VIAL ONE (14:38)
[2017-05-26] MEDS ORDERED: MIDAZOLAM 2 MG/2 ML VIAL ONE (14:38)
[2017-05-26] MEDS ORDERED: ISOPROTERENOL 250 MCG/1.25 ML SYR IV ONE (14:38)
[2017-05-26] MEDS ORDERED: SUCCINYLCHOLINE CHLORIDE VIAL 200 MG/10 ML VIAL IV ONE (14:38)
[2017-05-26] MEDS ORDERED: LIDOCAINE 2% INJ 20 MG/ML SQ ONE (15:24)
[2017-05-26] MEDS ORDERED: ADENOSINE 3 MG/ML 4 ML VIAL IVP ONE ×2 (15:57→16:01)
[2017-05-26] MEDS ORDERED: LACTATED RINGERS 1,000 ML IV ONE (16:03)
[2017-05-26] MEDS ORDERED: ACETAMINOPHEN IV (For NPO) 1,000 MG in EMPTY BAG 1 BAG IVPB ONE (17:11)
[2017-05-26] MEDS ORDERED: ACETAMINOPHEN TAB 325 MG TAB PO PRN (17:11)
[2017-05-26] MEDS ORDERED: HYDROcodone/APAP 5-325MG 1 EACH TAB PO PRN (17:11)
--- NOTE | 2017-05-26 18:43 | CE ---
CARDIAC ELECTROPHYSIOLOGY REPORT Mr. Zaman is a 57-year-old male patient, who has recurrent palpitations consistent with AV bora reentry despite beta blockers. He is brought for diagnostic EP study and radiofrequency ablation. The patient is brought to the EP lab in a fasting state. Informed consent was obtained prior to the procedure. With conscious sedation the patient started to become very agitated and was trying to get off the table and therefore the rest of the procedure was performed under general anesthesia. Venous sheaths were placed in the right left femoral veins and via these diagnostic catheters were placed in the heart (high right atrial catheter, HIS bundle catheter, RV catheter and coronary sinus catheter). The baseline measurements were normal. Sinus cycle length 896 milliseconds, KS interval 84 milliseconds, QRS 97 milliseconds, QTc 434 milliseconds. AH and HV intervals were within normal limits. Sinus node recovery times at 600, 500 and 400 milliseconds were 1198, 886, 1158 milliseconds. AV node Wenckebach block 390 milliseconds, VA Wenckebach block 390 milliseconds and retrograde conduction was midline. With straight pacing there was no evidence for delta waves nor was there any slow pathway evident with straight pacing. Para-Hisian pacing was attempted however, his bundle and RV capture was noted consistently and is difficult to differentiate between the two. Therefore, adenosine 12 mg and later 18 mg was injected. AV block was noted but no VA block was noted with VA pacing. Isuprel was then started with double extra stimuli. SVT was induced. The SVT onset was with a jump in the AH intervals. Septal time less than 60 milliseconds. The ventricular pacing associated with arrhythmia. However, the tachycardia was not entrained with the pacing and it terminated. Therefore, VAV response could not be certain on multiple occasions. In any case, the tachycardia was consistent with AV bora reentry and therefore slow pathway ablation was performed. A long sheath was used and RF tip RF ablation catheter was used. 3D mapping was performed. His cloud was mapped. The coronary sinus os was mapped. Tricuspid isthmus was mapped. RF ablation was performed anterior to the coronary sinus and the 2nd lesion resulted in episodes of junctional rhythm. Good power was achieved. Good contact was achieved. A short RF linear lesion was made across the slow pathway in the area of successful ablation. Following that, the details EP study was performed both on and off Isuprel after triple extra stimuli from 2 different sites and no SVT was induced. All catheters were then removed at the end of the procedure. The patient was transferred back to telemetry. RESULTS: Diagnostic EP study revealing AV bora re-entry as a mechanism of tachycardia. The AV bora re-entry was rendered noninducible after slow pathway ablation. PLAN: Discontinue beta blockers. Watch blood pressure off beta blockers. Continue CPAP treatment. MMODL / IJN: [id number] /
--- NOTE | 2017-05-26 18:43 | CE ---
CARDIAC ELECTROPHYSIOLOGY REPORT Dear Dr. Goodwin: RE: Jalen Thomaslo I had the pleasure seeing Mr. Jalen Zaman in electrophysiology followup. Mr. Zaman has a history of SVT and he underwent this diagnostic EP study which revealed AV bora reentry. The patient underwent successful slow pathway ablation. The tachycardia was ended completely noninducible. I plan to stop his beta blockers now and watch his blood pressure off beta blockers. Thank you for entrusting me with the care of the patient. Warm regards. Sincerely, MMODL / IJN: [id number] /
[2017-05-26] MEDS ORDERED: QUEtiapine 200 MG TAB PO SCH (21:00)
[2017-05-26] MEDS ORDERED: SERTRALINE 50 MG TAB PO SCH (21:00)
[2017-05-26] MEDS: SYMBICORT 160-4.5 MCG INHALER INHALATION SCH (21:18)
[2017-05-27] MEDS ORDERED: LEVOTHYROXINE 25 MCG TAB PO SCH (06:30)
[2017-05-27] MEDS ORDERED: PANTOPRAZOLE 40 MG TABLET PO SCH (07:30)
[2017-05-27] MEDS: SYMBICORT 160-4.5 MCG INHALER INHALATION SCH (08:25)
[2017-05-27 08:30] VITALS: PULSE 77; RESP 18
[2017-05-27] MEDS: SODIUM CHLORIDE 0.9% 1,000 ML IV SCH (09:12)
[2017-05-27 12:30] VITALS: BP 137/67; TEMP 98.8
--- NOTE | 2017-05-27 12:58 | P.DS ---
Providers Attending physician: Jordin Case Primary care physician: Kashif Jesús [facility] Course: Patient is doing well. He is resting comfortably in bed. He did walk in the hallways. He has not had any groin issues. No bleeding swelling or tenderness in both right and left groins. Denies any chest discomfort. Breath sounds equal bilaterally with scattered rhonchi. 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 Hold metoprolol. Watch home blood pressure. Follow-up with the office in 1-2 weeks for a groin check. Follow Dr. Barros in 8 weeks. I will make his appointments Plan - Discharge Summary New Discharge Prescriptions: Discontinued Metoprolol Succinate (ER) [Toprol Xl] 50 mg PO QAM No Action QUEtiapine [SEROquel] 200 mg PO HS Omeprazole [PriLOSEC] 20 mg PO AC-BID Sertraline [Zoloft] 50 mg PO HS Budesonide-Formot 160-4.5 Mcg [Symbicort 160-4.5 Mcg Inhaler] 2 puff INHALATION RT-BID Levothyroxine Sodium 25 mcg PO DAILY Discharge Medication List Omeprazole [PriLOSEC] 20 mg PO AC-BID 05/29/16 [History] QUEtiapine [SEROquel] 200 mg PO HS 05/29/16 [History] Budesonide-Formot 160-4.5 Mcg [Symbicort 160-4.5 Mcg Inhaler] 2 puff INHALATION RT-BID 03/17/17 [History] Levothyroxine Sodium 25 mcg PO DAILY 03/17/17 [History] Sertraline [Zoloft] 50 mg PO HS 03/17/17 [History] Follow up Appointment(s)/Referral(s): Jordin Case MD [STAFF PHYSICIAN] - 6 Weeks Activity/Diet/Wound Care/Special Instructions: Post EP study - Ablation instructions 1. Keep access sites dry for 2 days. 2. No heavy lifting or straining for 2 days. 3. Avoid bending the hips repeatedly for 2 days. 4. You may go up and down stairs slowly Call if the following is noted 1. Bleeding, increasing swelling or pain at the access sites. 2. Increasing chest discomfort, especially upon taking a deep breath. 3. Increasing shortness of breath, at rest or with exertion. 4. Undue cough / phlegm 5. Difficulty or pain while swallowing. 6. Pain or change in color in the extremities. 7. Fever, chills, rigors. 8. Increasing headache or neurologic symptoms. 9. Dizziness, fainting, palpitations Discharge Disposition: HOME SELF-CARE
== END 2017-05-27 13:51 | disposition home or self-care (01) ==
LOC: CATHEP 11:05 → 3OBS 18:34 → CATHEP 05-27 13:51
PROVIDERS: ATTEND Internal Medicine Clinical Cardiac Electrophysiology
DX: I47.1 Supraventricular tachycardia (principal); I44.2 Atrioventricular block, complete; G47.33 Obstructive sleep apnea (adult) (pediatric); Z99.89 Dependence on other enabling machines and devices; E66.01 Morbid (severe) obesity due to excess calories; Z68.42 Body mass index [BMI] 45.0-49.9, adult; Z79.51 Long term (current) use of inhaled steroids; Z79.899 Other long term (current) drug therapy
CPT/HCPCS: 94640 ×2; 93623; 93613; 93653; C1894; C1769 ×2; C1730 ×3; C1732; C1893; J2001; J2250; J0330; J1644; J2710; J3010; J0153; J2370; J2704

== ENCOUNTER → 2018-03-06 | Outpatient (CLI) | payer MEDICARE ==
[2018-03-06 17:09] LABS: Cholesterol 199 mg/dL (<200); HDL Cholesterol 68 mg/dL (40-60); LDL Cholesterol,Calculated 98 mg/dL (0-99); Triglycerides 167 mg/dL (<150)
== END | disposition home or self-care (01) ==
LOC: LABWHC1 16:29
PROVIDERS: ATTEND Internal Medicine Clinical Cardiac Electrophysiology
DX: E78.5 Hyperlipidemia, unspecified (principal)
CPT/HCPCS: 36415; 80061

== ENCOUNTER → 2018-12-03 | Outpatient (CLI) | payer MEDICARE ==
--- NOTE | 2018-12-03 08:24 | CT ---
EXAMINATION TYPE: CT brain wo con DATE OF EXAM: 12/03/2018 COMPARISON: None HISTORY: 58-year-old male headache x 1 month TECHNIQUE: Examination was done in axial plane without intravenous contrast. Coronal and sagittal r econstructions performed. CT DLP: 1071.9 mGycm Automated exposure control for dose reduction was used. FINDINGS: There is no evidence of acute intracranial hemorrhage, acute ischemic changes, mass, mass-effect, or extra-axial fluid collection. There is no effacement of cerebral sulci or basal subarachnoid cister ns. There is no hydrocephalus. There is no midline shift. Irwin-white matter distinction is preserv ed. Very mild age-related cerebral cortical volume loss. Mild patchy periventricular white matter hypoden sities. Leftward nasal septal deviation. There is opacification of the right maxillary sinus. Mastoid air socrates ls are well pneumatized. Orbits and globes appear intact.. IMPRESSION: 1. Mild patchy changes of chronic small vessel ischemic disease. No acute intracranial abnormality se en. 2. Severe chronic right maxillary sinus disease. Leftward nasal septal deviation.
--- NOTE | 2018-12-03 09:43 | US ---
EXAMINATION TYPE: US abdomen complete DATE OF EXAM: 12/03/2018 COMPARISON: NONE CLINICAL HISTORY: R10.13 epigastric pain. EXAM MEASUREMENTS: Liver Length: 16.3 cm Gallbladder Wall: 0.2 cm CBD: 0.6 cm Spleen: 11.8 cm Right Kidney: 13.0 x 5.1 x 5.0 cm Left Kidney: 13.1 cm Morbidly obese patient, technically difficult study. Pancreas: Obscured by bowel gas Liver: Increased attenuation, decreased visualization of vessels suggestive of fatty infiltrate Gallbladder: wnl Evidence for sonographic [place]'s sign: no CBD: wnl Spleen: wnl Right Kidney: No hydronephrosis or masses seen, measures large Left Kidney: No hydronephrosis or masses seen, measures large Upper IVC: wnl Abd Aorta: Obscured by overlying bowel gas and obesity The visualized liver is heterogeneously hyperechoic. Evaluation for focal masses is suboptimal due t o the heterogeneity. The intrahepatic portion of the IVC and proximal abdominal aorta are within norm al limits. There is no evidence of cholelithiasis. Common bile duct is unremarkable. The pancreas is suboptimally evaluated as it is obscured by overlying bowel gas on images saved. The spleen is un remarkable. Kidneys are symmetric and free of hydronephrosis. No renal lesions are seen. IMPRESSION: Heterogeneous hyperechoic appearance of liver is felt to be on basis of diffuse fatty inf iltration. Correlate clinically and with liver lab values. No acute finding is seen to account for chichi browning's symptoms of epigastric pain.
== END ==
LOC: RADCTMAIN 07:27
PROVIDERS: ATTEND Internal Medicine
DX: K76.0 Fatty (change of) liver, not elsewhere classified (principal); I67.82 Cerebral ischemia
CPT/HCPCS: 70450; 76700

== ENCOUNTER → 2019-03-02 | Outpatient (CLI) | payer MEDICARE ==
[2019-03-03 00:07] LABS: LDL Cholesterol,Calculated 115.2 mg/dL (0.0-131.0); VLDL Calculation 28.8 mg/dL (5.00-40.00)
== END | disposition home or self-care (01) ==
LOC: LABWHC1 16:43
PROVIDERS: ATTEND Physician Assistant
DX: E03.9 Hypothyroidism, unspecified (principal); E78.5 Hyperlipidemia, unspecified
CPT/HCPCS: 36415; 80061; 84443; 84481

== ENCOUNTER → 2020-06-21 | Outpatient (CLI) | payer MEDICARE ==
--- NOTE | 2020-06-21 20:08 | CT ---
EXAMINATION TYPE: CT sinus wo con DATE OF EXAM: 06/21/2020 COMPARISON: None HISTORY: [id number] male with J32.9, chronic sinusitis CT DLP: 517.40 mGycm Automated exposure control for dose reduction was used. TECHNIQUE: Noncontrast axial views of the paranasal sinuses were obtained. Coronal reconstructions pe rformed. FINDINGS: PARANASAL SINUSES: The right maxillary sinus is shrunken and opacified. This results in downward displacement of the rig ht orbital floor and right lateral displacement of the right nasal cavity. Hypoplastic bilateral frontal sinuses. There is trace mucosal thickening along the floor of the left maxillary sinus. Ethmoid air cells well pneumatized. No air-fluid levels. Reactive melinda- osteogenesis is not seen. There is no destruction of the osseous martines of the paranasal sinuses. THE NASAL CAVITY: The left osteomeatal complex is patent. The right maxillary infundibulum is flattened against the orb ital floor occluding the right maxillary antrum. Prominent leftward nasal septal deviation. The imaged brain is normal in appearance. Scattered fluid within the right mastoid air cells. Middle ear cavities are well pneumatized. Reformatted images confirm above findings. IMPRESSION: 1. Right maxillary sinus atelectasis, possible silent sinus syndrome. Clinically correlate. 2. Leftward nasal septal deviation and trace mucosal thickening along the floor the left maxillary si nus. 3. Some scattered trapped fluid in the right mastoid air cells. Correlate for any mastoid pain to exc lude mastoiditis.
== END | disposition home or self-care (01) ==
LOC: RADCTMAIN 16:57
PROVIDERS: ATTEND Otolaryngology
DX: J34.2 Deviated nasal septum (principal); J34.89 Other specified disorders of nose and nasal sinuses; J32.9 Chronic sinusitis, unspecified
CPT/HCPCS: 70486

== ENCOUNTER → 2020-06-21 | Outpatient (CLI) | payer MEDICARE ==
[2020-06-21 15:59] VITALS: BP 144/95; PULSE 76; RESP 16; TEMP 98.5; BMI 52.4
--- NOTE | 2020-06-21 16:43 | P.HPBAR ---
Bariatric H&P - History & Physicial H&P Date: 06/21/20 History & Physicial: Visit/CC: Initial Visit Patient initial contact: Initial weight: 145.15 kg Initial weight in pounds: 320.00 Height: 5 ft 5.5 in Initial BMI: 52.4 Last weight: Current weight: 145.15 kg Current weight in pounds: 320.00 Current BMI: 52.4 [place] body weight (based on NIH guidelines): 63.049 kg Excess body weight loss: 0.0% The patient is a 60 year-old M who presents for Bariatric Assessment. DATE OF SERVICE: 06/21/2020 REASON FOR CONSULTATION: Initial bariatric evaluation. HISTORY OF PRESENT ILLNESS: Jalen Zaman is a 60-year-old male who comes in with lifelong morbid obesity. He has multiple co-morbidities including hypertensive heart disease, chronic obstructive pulmonary disease with sleep apnea including osteoarthritis secondary to his morbid obesity. He is looking to loose as much weight as possible. He is looking into the gastric bypass. He has gastroesophageal reflux disease. He denies diabetes. No reports of ulcerative colitis. He had a colonoscopy. He denies blood clots or bleeding. He has not had any abdominal surgeries. He denies dysphagia. He has tried cutting down food portions for weight loss. He presents to me first time in consultation for management of his obesity. At height of 5 feet 5.5 inches, his ideal body weight is 149 pounds. He comes in 319 pounds. Her body mass index is 52.4. He is 170 pounds overweight. PAST MEDICAL HISTORY: 1. Morbid obesity due to excess calories 2. Body mass index of 52.4, initial 3. Gastroesophageal reflux disease 4. Chronic obstructive pulmonary disease 5. Hypothyroidism 6. Depressive disorder 7. Obstructive sleep apnea 8. Pneumonia 9. Osteoarthritis hips 10. Depressive disorder 11. Anxiety disorder PAST SURGICAL HISTORY: 1. Left rotator cuff repair 2. Left hip replacement 3. Colonoscopy with polypectomy 4. Right hand surgery HOME MEDICATIONS: Home Medications Medication Instructions Recorded Confirmed Omeprazole [PriLOSEC] 20 mg PO AC-BID 05/29/16 08/23/20 QUEtiapine [SEROquel] 200 mg PO HS 05/29/16 08/23/20 Budesonide-Formot 160-4.5 Mcg 2 puff INHALATION RT-BID PRN 03/17/17 08/23/20 [Symbicort 160-4.5 Mcg Inhaler] Levothyroxine Sodium 25 mcg PO DAILY 03/17/17 08/23/20 Sertraline [Zoloft] 50 mg PO HS 03/17/17 08/23/20 Calcium Citrate 1,200 mg PO DAILY 07/12/20 08/23/20 Ergocalciferol [Vitamin D2 50,000 unit PO NOVAK 07/12/20 08/23/20 (DRISDOL)] Zinc 60 mg PO DAILY 07/12/20 08/23/20 ALLERGIES: Allergies Allergy/AdvReac Type Severity Reaction Status Date / Time No Known Allergies Allergy Verified 08/23/20 13:42 SOCIAL HISTORY: Past tobacco use. FAMILY HISTORY: No family history of ulcerative colitis disease or Crohn's disease. Family history of morbid obesity. No lupus in the family. No reports of stomach or esophageal cancer. REVIEW OF ORGAN SYSTEMS: CONSTITUTIONAL: At height of 5 feet 5.5 inches, his ideal body weight is 149 pounds. He comes in 319 pounds. Her body mass index is 52.4. He is 170 pounds overweight. HEENT: Denies any active troubles with vision or hearing. ENDOCRINE: Denies diabetes. Has hypothyroidism. CARDIOVASCULAR: Past reports of palpitations or heart attacks or chest pain. RESPIRATORY: Has daytime somnolence. Has COPD. GASTROINTESTINAL: Denies any bright red blood per rectum. No diarrhea. No constipation. Has gastroesophageal reflux disease MUSCULOSKELETAL: Has lower back pain and joint pain. Has osteoarthritis of the knees. NEURO: No headaches. No seizure disorders. PSYCH: Has depression. No suicidal ideation. RHEUMATOLOGIC: No lupus. No rheumatoid arthritis. HEMATOLOGIC: Denies any abnormal bleeding or bruising. No personal history of DVTs. SKIN: No rash. No skin cancer. PHYSICAL EXAM: VITAL SIGNS: Height 5 foot 5.5 inches, weight 319 pounds. BMI 52.4 Vital Signs Temp 98.5 F 06/21/20 15:55 Pulse 76 06/21/20 15:55 Resp 16 06/21/20 15:55 BP 144/95 06/21/20 15:55 Pulse Ox GENERAL: Well-developed in no acute distress. HEENT: No scleral icterus. Extraocular movements grossly intact. Hears conversational speech. No nasal drainage. NECK: Supple without lymphadenopathy. CHEST: Nonlabored respirations with equal bilateral excursions. CARDIOVASCULAR: Regular rate and regular rhythm. Distal 2+ pulses. ABDOMEN: Obese, soft, nontender, nondistended. MUSCULOSKELETAL: No clubbing, cyanosis. NEURO: No focal or lateralizing signs. Cranial nerves 2 through 12 grossly within normal limits. PSYCH: Appropriate affect. Alert and oriented to person, place and time. SKIN: Good skin turgor. Well perfused. ASSESSMENT: 1. Morbid obesity due to excess calories 2. Body mass index of 52.4, initial 3. Gastroesophageal reflux disease 4. Chronic obstructive pulmonary disease 5. Hypothyroidism 6. Depressive disorder 7. Obstructive sleep apnea 8. Pneumonia 9. Osteoarthritis hips 10. Depressive disorder 11. Anxiety disorder PLAN: 1. Surgical options including a band, gastric bypass, sleeve gastrectomy were described in detail. Alternatives such as gastric balloon including duodenal switch were described. 2. The [place] bariatric surgical collaborative data and outcomes calculator were described with surgical options. 3. Recommend a bariatric metabolic panel to evaluate for micro- including macronutrient deficiencies. 4. Recommend evaluation and treatment for sleep apnea. 5. Dietary surveillance and counseling was reviewed. Increased protein intake over 65 grams daily advised. 6. Will need cardiac risk assessment. 7. Recommend medical risk assessment. 8. Psych assessment per insurance guidelines. 9. Recommend upper endoscopy. 10. Recommend 12-lead EKG. 11. Will need pulmonary clearance for his COPD. Thank you for this consultation. Past Medical History Past Medical History: COPD, GERD/Reflux, Osteoarthritis (OA), Pneumonia, Sleep Apnea/CPAP/BIPAP Additional Past Medical History / Comment(s): pt uses cpap, enlarged thyroid History of Any Multi-Drug Resistant Organisms: None Reported Past Surgical History: Orthopedic Surgery Additional Past Surgical History / Comment(s): lt rotator cuff ', lt hip replacment 1999, colonoscopy/plypectomy(benign), rt hand sx had pins removed. catatract sx 2019 Past Anesthesia/Blood Transfusion Reactions: No Reported Reaction Past Psychological History: Anxiety, Depression Smoking Status: Former smoker Past Alcohol Use History: Occasional Additional Past Alcohol Use History / Comment(s): started smokng at age 9 or 10, smoked 1 ppd, quit 2013, drinks <14 drinks per week Past Drug Use History: Marijuana, Methamphetamine Additional Drug Use History / Comment(s): stated has been clean since 2009 - Past Family History Father Family Medical History: CVA/TIA, Diabetes Mellitus Additional Family Medical History / Comment(s): dads brothers x 2 had strokes as well as 1 sister Mother Family Medical History: Eye Disorder, Osteoarthritis (OA) Additional Family Medical History / Comment(s): cataracts Surgical - Exam Vital Signs Temp Pulse Resp BP 98.5 F 76 16 144/95 06/21/20 15:55 06/21/20 15:55 06/21/20 15:55 06/21/20 15:55 Bariatric Checklist Checklist: Plan: Checklist: EGD: 1. Hiatal hernia: 2. H. Pylori: HgbA1c: Vitamin D: Smoking: Former smoker Primary care physician referral: Buddy Psychiatry clearance: Cardiology clearance: Sleep study: Diet journal: VTE risk score: VTE risk level: Rehab needs at discharge:
== END | disposition home or self-care (01) ==
LOC: BARWHC3 15:16
PROVIDERS: ATTEND Surgery Plastic and Reconstructive Surgery
DX: E66.01 Morbid (severe) obesity due to excess calories (principal); Z68.43 Body mass index [BMI] 50.0-59.9, adult
CPT/HCPCS: 99201

== ENCOUNTER → 2020-06-27 | Outpatient (CLI) | payer MEDICARE ==
[2020-06-27 14:20] LABS: HCT 46.9 % (39.0-53.0); HGB 14.5 gm/dL (13.0-17.5); Hypochromasia Slight; MCH 27.4 pg (25.0-35.0); MCHC 30.9 g/dL (31.0-37.0); MCV 88.7 fL (80.0-100.0); Mean Platelet Volume 6.9; Platelet Count 226 k/uL (150-450); RBC 5.28 m/uL (4.30-5.90); RDW 14.1 % (11.5-15.5); WBC 6.5 k/uL (3.8-10.6)
[2020-06-27 22:41] LABS: Hemoglobin A1C 5.8 % (4.0-6.0)
[2020-06-27 22:56] LABS: % Iron Saturation 24.02 (15.00-50.00); African American GFR (CKD) 83.5 (60.0-200.0); Albumin 4.6 g/dL (3.80-4.90); Albumin/Globulin Ratio 1.84 (1.60-3.17); Anion Gap 8.6 mmol/L (4.00-12.00); BUN/Creat Ratio 11.82 Ratio (12.00-20.00); Calcium 9.4 mg/dL (8.7-10.3); Carbon Dioxide 27.4 mmol/L (21.6-31.8); Chol/HDL Ratio 3.47; Globulin 2.5 g/dL (1.6-3.3); LDL Cholesterol,Calculated 90.4 mg/dL (0.0-131.0); Magnesium 1.9 mg/dL (1.5-2.4); Non-African American GFR(CKD) 72.1 (60.0-200.0); Phosphorus 3.3 mg/dL (2.4-5.1); Potassium 4.5 mmol/L (3.5-5.5); Total Bilirubin 0.4 mg/dL (0.3-1.2); Total Protein 7.1 g/dL (6.2-8.2); VLDL Calculation 30.6 mg/dL (5.00-40.00)
[2020-06-27 23:06] LABS: Ferritin 47.8 ng/mL (22.0-322.0)
[2020-06-27 23:09] LABS: Folate, Serum 8.1 ng/mL
[2020-06-28 04:07] LABS: INR 0.93 (0.90-1.11); Partial Thromboplastin Time 31.4 sec (24.7-29.9)
[2020-06-28 11:21] LABS: Zinc, Serum 59 ug/dL (60-130)
[2020-06-29 11:05] LABS: Vit B1(Thiamine) 59 ug/L (38-122)
[2020-07-02 01:30] LABS: Selenium 137 mcg/L (63-160)
== END | disposition home or self-care (01) ==
LOC: LABWHC1 12:49
PROVIDERS: ATTEND Surgery Plastic and Reconstructive Surgery
DX: E89.1 Postprocedural hypoinsulinemia (principal); E66.01 Morbid (severe) obesity due to excess calories; D50.8 Other iron deficiency anemias; K90.89 Other intestinal malabsorption; E55.9 Vitamin D deficiency, unspecified; N19 Unspecified kidney failure; K50.90 Crohn's disease, unspecified, without complications; K74.1 Hepatic sclerosis
CPT/HCPCS: 36415; 80053; 80061; 82306; 82525; 82607; 82728; 82746; 83036; 83540; 83550; 83735; 83970; 84100; 84134; 84255; 84425; 84443; 84590; 84630; 85027; 85610; 85730; 93005

== ENCOUNTER 2020-08-09 08:24 | Day surgery (SDC) | payer MEDICARE ==
[2020-08-04 15:22] VITALS: BMI 52.1
[~2020-08-09 08:24] MED LIST: LACTATED RINGERS 1,000 ML IV SCH
--- NOTE | 2020-08-09 08:42 | P.GSHP ---
History of Present Illness H&P Date: 08/09/20 CHIEF COMPLAINT: GERD HISTORY OF PRESENT ILLNESS: The patient is a 60-year-old male who presents reports gastroesophageal reflux disease. Upper endoscopy was offered for further evaluation and management. PAST MEDICAL HISTORY: Please see list. PAST SURGICAL HISTORY: Please see list. MEDICATIONS: Please see list. ALLERGIES: Please see list. SOCIAL HISTORY: No illicit drug use FAMILY HISTORY: No reports of Crohn disease or ulcerative colitis. REVIEW OF ORGAN SYSTEMS: CONSTITUTIONAL: No reports of fevers or chills. GI: Denies any blood in stools or constipation. PHYSICAL EXAM: VITAL SIGNS: Stable GENERAL: Well-developed and pleasant in no acute distress. HEENT: No scleral icterus. Extraocular movements grossly intact. Moist buccal mucosa. NECK: Supple without lymphadenopathy. CHEST: Unlabored respirations. Equal bilateral excursions. CARDIOVASCULAR: Regular rate and rhythm. Distal 2+ pulses. ABDOMEN: Soft, nondistended. MUSCULOSKELETAL: No clubbing, cyanosis, or edema. ASSESSMENT: 1. Gastroesophageal reflux disease PLAN: 1. Recommend proceeding with an upper endoscopy Past Medical History Past Medical History: COPD, GERD/Reflux, Hyperlipidemia, Sleep Apnea/CPAP/BIPAP, Thyroid Disorder Additional Past Medical History / Comment(s): CPAP use, enlarged thyroid. History of Any Multi-Drug Resistant Organisms: None Reported Past Surgical History: Joint Replacement, Orthopedic Surgery Additional Past Surgical History / Comment(s): Left rotator cuff repair, left hip replacment, colonoscopy/polypectomy(benign), right hand surgery, had pins removed, Catatract surgery. Past Anesthesia/Blood Transfusion Reactions: No Reported Reaction Past Psychological History: Anxiety, Depression Smoking Status: Former smoker Past Alcohol Use History: Occasional Additional Past Alcohol Use History / Comment(s): Started smokng at age 9 or 10, smoked 1 ppd, quit 2013. 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 - Past Family History Father Family Medical History: CVA/TIA, Diabetes Mellitus Additional Family Medical History / Comment(s): Dads brothers x 2 had strokes as well as 1 sister. Mother Family Medical History: Eye Disorder, Osteoarthritis (OA) Additional Family Medical History / Comment(s): Cataracts. Medications and Allergies Home Medications Medication Instructions Recorded Confirmed Type Omeprazole [PriLOSEC] 20 mg PO AC-BID 05/29/16 08/04/20 History QUEtiapine [SEROquel] 200 mg PO HS 05/29/16 08/04/20 History Budesonide-Formot 160-4.5 Mcg 2 puff INHALATION RT-BID PRN 03/17/17 08/04/20 History [Symbicort 160-4.5 Mcg Inhaler] Levothyroxine Sodium 25 mcg PO DAILY 03/17/17 08/04/20 History Sertraline [Zoloft] 50 mg PO HS 03/17/17 08/04/20 History Calcium Citrate 1,200 mg PO DAILY 07/12/20 08/04/20 History Ergocalciferol [Vitamin D2 50,000 unit PO NOVAK 07/12/20 08/04/20 History (DRISDOL)] Zinc 60 mg PO DAILY 07/12/20 08/04/20 History Allergies Allergy/AdvReac Type Severity Reaction Status Date / Time No Known Allergies Allergy Verified 08/04/20 15:50
[2020-08-09 08:45] VITALS: RESP 16; TEMP 97
[2020-08-09] MEDS ORDERED: LIDOCAINE 1% (10MG/ML) FOR IV START INTRADERMA ONE (08:45)
[2020-08-09] MEDS ORDERED: LIDOCAINE 1% INJ 10MG/ML (20 ML MDV) ONE (09:01)
[2020-08-09] MEDS ORDERED: PROPOFOL 10 MG/ML 20 ML VIAL IV ONE (09:01)
[2020-08-09] MEDS ORDERED: KETAMINE 10 MG/ML 20 ML VIAL ONE (09:01)
[2020-08-09] MEDS ORDERED: MIDAZOLAM 2 MG/2 ML VIAL ONE (09:01)
--- NOTE | 2020-08-09 09:17 | P.PCN ---
Date of Procedure: 08/09/20 Description of Procedure: PREOPERATIVE DIAGNOSIS: Gastroesophageal reflux disease. Morbid obesity. POSTOPERATIVE DIAGNOSIS: Morbid obesity. Gastritis. Gastroesophageal reflux disease. Diaphragmatic hiatal hernia OPERATION: Esophagogastroduodenoscopy with biopsies along antrum and gastric cardia SURGEON: Verenice Brady MD ANESTHESIA: MAC. INDICATIONS: The patient is a 45-year-old female who presents with a history of reflux disease. Benefits and risks of the procedure were described. Informed consent was obtained. DESCRIPTION: The patient was brought into the endoscopy suite and laid in the left lateral decubitus position. An Olympus gastroscope was passed along the posterior oropharynx down to the distal esophagus where the squamocolumnar junction was encountered at 37 cm from the incisors. The stomach was entered and no bile reflux was found. Additional findings are listed below. Biopsies with cold forceps were obtained of the antrum and gastric cardia. The first through third portion of the duodenum was examined and unremarkable. Retroflexion of the scope confirmed Hill grade 4 lower esophageal valve. The squamocolumnar junction demonstrated LA grade B erosive esophagitis. The stomach was desufflated. The patient tolerated the procedure well. FINDINGS: Squamocolumnar junction 37 cm from the incisors. Diaphragmatic hiatus at 42 cm. Hiatal hernia, 5 cm Hill grade 4 lower esophageal valve. LA grade B erosive esophagitis. No active duodenitis. Chronic gastritis with recent bleed RECOMMENDATIONS: Upper endoscopy as needed. Plan - Discharge Summary Discharge Rx Participant: No New Discharge Prescriptions: Continue QUEtiapine [SEROquel] 200 mg PO HS Omeprazole [PriLOSEC] 20 mg PO AC-BID Sertraline [Zoloft] 50 mg PO HS Budesonide-Formot 160-4.5 Mcg [Symbicort 160-4.5 Mcg Inhaler] 2 puff INH ALATION RT-BID PRN PRN Reason: Shortness Of Breath Levothyroxine Sodium 25 mcg PO DAILY Zinc 60 mg PO DAILY Ergocalciferol [Vitamin D2 (DRISDOL)] 50,000 unit PO NOVAK Calcium Citrate 1,200 mg PO DAILY Discharge Medication List Omeprazole [PriLOSEC] 20 mg PO AC-BID 05/29/16 [History] QUEtiapine [SEROquel] 200 mg PO HS 05/29/16 [History] Budesonide-Formot 160-4.5 Mcg [Symbicort 160-4.5 Mcg Inhaler] 2 puff INHALATION RT-BID PRN 03/17/17 [History] Levothyroxine Sodium 25 mcg PO DAILY 03/17/17 [History] Sertraline [Zoloft] 50 mg PO HS 03/17/17 [History] Calcium Citrate 1,200 mg PO DAILY 07/12/20 [History] Ergocalciferol [Vitamin D2 (DRISDOL)] 50,000 unit PO NOVAK 07/12/20 [History] Zinc 60 mg PO DAILY 07/12/20 [History] [facility]ment[facility] [place] [facility] - [facility]20 Patient Instructions/Handouts: Gastritis (DC), Hiatal Hernia (DC) Discharge Disposition: HOME SELF-CARE
[2020-08-09 09:40] VITALS: BP 142/93; PULSE 72
== END 2020-08-09 09:50 | disposition home or self-care (01) ==
LOC: ORWHC2ENDO 08:24
PROVIDERS: ATTEND Surgery Plastic and Reconstructive Surgery
DX: K29.50 Unspecified chronic gastritis without bleeding (principal); K44.9 Diaphragmatic hernia without obstruction or gangrene; K21.00 Gastro-esophageal reflux disease with esophagitis, without bleeding; K22.10 Ulcer of esophagus without bleeding; E66.01 Morbid (severe) obesity due to excess calories; J44.9 Chronic obstructive pulmonary disease, unspecified; E78.5 Hyperlipidemia, unspecified; F41.9 Anxiety disorder, unspecified; F32.9 Major depressive disorder, single episode, unspecified; G47.33 Obstructive sleep apnea (adult) (pediatric); E07.9 Disorder of thyroid, unspecified; Z99.89 Dependence on other enabling machines and devices; Z79.899 Other long term (current) drug therapy; Z96.642 Presence of left artificial hip joint; Z98.49 Cataract extraction status, unspecified eye; Z98.890 Other specified postprocedural states; Z79.51 Long term (current) use of inhaled steroids; Z79.890 Hormone replacement therapy; Z87.891 Personal history of nicotine dependence; Z83.3 Family history of diabetes mellitus; Z82.3 Family history of stroke; Z82.61 Family history of arthritis; Z83.518 Family history of other specified eye disorder; Z68.43 Body mass index [BMI] 50.0-59.9, adult
CPT/HCPCS: 88305; 43239; J2250; J2001; J2704

== ENCOUNTER → 2020-08-23 | Outpatient (CLI) | payer MEDICARE ==
[2020-08-23 13:45] VITALS: BP 130/64; PULSE 79; RESP 18; TEMP 98.8; BMI 52.6
--- NOTE | 2020-08-23 14:47 | P.PN ---
Subjective Progress Note Date: 08/23/20 DATE OF SERVICE: 08/23/2020 CHIEF COMPLAINT: Morbid obesity HISTORY OF PRESENT ILLNESS: Jalen Zaman is a 60-year-old male who comes in with lifelong morbid obesity. He has multiple co-morbidities including hypertensive heart disease, chronic obstructive pulmonary disease with sleep apnea including osteoarthritis both hips secondary to his morbid obesity. He has reviewed his options and is looking into the sleeve gastrectomy. He has completed an upper endoscopy. He is pending psychology and cardiac assessments. He present today for management of his obesity. At height of 5 feet 5.5 inches, his ideal body weight is 149 pounds. He comes in 320 pounds from 319 pounds, 2 months ago. He has gained 1 pound in 2 months. Bbody mass index is 52.4, now 52.6. He is 171 pounds overweight. PAST MEDICAL HISTORY: 1. Morbid obesity due to excess calories 2. Body mass index of 52.4, initial 3. Gastroesophageal reflux disease 4. Chronic obstructive pulmonary disease 5. Hypothyroidism 6. Depressive disorder 7. Obstructive sleep apnea 8. Pneumonia 9. Osteoarthritis hips 10. Depressive disorder 11. Anxiety disorder 12. Osteoarthritis hips 13. Colon polyps PAST SURGICAL HISTORY: 1. Left rotator cuff repair 2. Left hip replacement 3. Colonoscopy with polypectomy 4. Right hand surgery HOME MEDICATIONS: Home Medications Medication Instructions Recorded Confirmed Omeprazole [PriLOSEC] 20 mg PO AC-BID 05/29/16 08/23/20 QUEtiapine [SEROquel] 200 mg PO HS 05/29/16 08/23/20 Budesonide-Formot 160-4.5 Mcg 2 puff INHALATION RT-BID PRN 03/17/17 08/23/20 [Symbicort 160-4.5 Mcg Inhaler] Levothyroxine Sodium 25 mcg PO DAILY 03/17/17 08/23/20 Sertraline [Zoloft] 50 mg PO HS 03/17/17 08/23/20 Calcium Citrate 1,200 mg PO DAILY 07/12/20 08/23/20 Ergocalciferol [Vitamin D2 50,000 unit PO NOVAK 07/12/20 08/23/20 (DRISDOL)] Zinc 60 mg PO DAILY 07/12/20 08/23/20 ALLERGIES: Allergies Allergy/AdvReac Type Severity Reaction Status Date / Time No Known Allergies Allergy Verified 08/23/20 13:42 SOCIAL HISTORY: Past tobacco use. Marijuana, Methamphetamine. Drinks moderater beer weekly. FAMILY HISTORY: No family history of ulcerative colitis disease or Crohn's disease. Family history of morbid obesity. No lupus in the family. No reports of stomach or esophageal cancer. REVIEW OF ORGAN SYSTEMS: CONSTITUTIONAL: At height of 5 feet 5.5 inches, his ideal body weight is 149 pounds. He comes in 319 pounds. Body mass index is 52.4. He is 170 pounds overweight. HEENT: Denies any active troubles with vision or hearing. ENDOCRINE: Denies diabetes. Has hypothyroidism. CARDIOVASCULAR: Past reports of palpitations or heart attacks or chest pain. RESPIRATORY: Has daytime somnolence. Has COPD. GASTROINTESTINAL: Denies any bright red blood per rectum. No diarrhea. No constipation. Has gastroesophageal reflux disease MUSCULOSKELETAL: Has lower back pain and joint pain. Has osteoarthritis of the hips NEURO: No headaches. No seizure disorders. PSYCH: Has depression. No suicidal ideation. Has anxiety. History of drug abuse, past. RHEUMATOLOGIC: No lupus. No rheumatoid arthritis. HEMATOLOGIC: Denies any abnormal bleeding or bruising. No personal history of DVTs. SKIN: No rash. No skin cancer. PHYSICAL EXAM: VITAL SIGNS: Height 5 foot 5.5 inches, weight 320 pounds. BMI 52.6 Vital Signs Temp 98.8 F 08/23/20 13:41 Pulse 79 08/23/20 13:41 Resp 18 08/23/20 13:41 BP 130/64 08/23/20 13:41 Pulse Ox GENERAL: Well-developed in no acute distress. HEENT: No scleral icterus. Extraocular movements grossly intact. Hears conversational speech. No nasal drainage. NECK: Supple without lymphadenopathy. CHEST: Nonlabored respirations with equal bilateral excursions. CARDIOVASCULAR: Regular rate and regular rhythm. Distal 2+ pulses. ABDOMEN: Obese, soft, nontender, nondistended. MUSCULOSKELETAL: No clubbing, cyanosis. NEURO: No focal or lateralizing signs. Cranial nerves 2 through 12 grossly within normal limits. PSYCH: Appropriate affect. Alert and oriented to person, place and time. SKIN: Good skin turgor. Well perfused. LABS: Triglycerides are elevated, vitamin D is low, PTH is elevated, Zinc is low. EKG: reviewed and is normal EGD FINDINGS: Squamocolumnar junction 37 cm from the incisors. Diaphragmatic hiatus at 42 cm. Hiatal hernia, 5 cm Hill grade 4 lower esophageal valve. LA grade B erosive esophagitis. No active duodenitis. Chronic gastritis with recent bleed Final Pathologic Diagnosis A. GASTRIC ANTRUM, BIOPSY: Minimal chronic gastritis. ASSESSMENT: 1. Morbid obesity due to excess calories 2. Body mass index of 52. 3. Gastroesophageal reflux disease 4. Chronic obstructive pulmonary disease 5. Hypothyroidism 6. Depressive disorder 7. Obstructive sleep apnea 8. Pneumonia 9. Osteoarthritis hips 10. Depressive disorder 11. Anxiety disorder 12. Osteoarthritis hips 13. Colon polyps 14. Hypertriglyceridemia 15. Vitamin D deficiency 16. Secondary hyperparathyroidism 17. Zinc deficiency 18. Chronic gastritis with bleeding 19. Paraesophageal diaphragmatic hiatal hernia PLAN: 1. He has multiple new problems including hypertriglyceridemia, vitamin D deficiency, zinc deficiency, and secondary hyperparathyroidism. 2. [place] [address] units weekly prescribed with likely concomittant correction of secondary hyperparathyroidism anticipated. 3. Correction of zinc deficiency advised. 4. He has a large paraesophageal hiatal hernia identified, and will need repair prior to sleeve gastrectomy. 5. Recommend robotic hiatal hernia repair for large hernia. He is elevated risk for complications with severity of pre-exiting lung disease and sleep apnea. Objective - Vital Signs Vital signs: Vital Signs Temp 98.8 F 08/23/20 13:41 Pulse 79 08/23/20 13:41 Resp 18 08/23/20 13:41 BP 130/64 08/23/20 13:41 Pulse Ox Intake & Output 08/22/20 08/23/20 08/23/20 18:59 06:59 18:59 Weight 145.603 kg
== END | disposition home or self-care (01) ==
LOC: BARWHC3 12:56
PROVIDERS: ATTEND Surgery Plastic and Reconstructive Surgery
DX: E66.01 Morbid (severe) obesity due to excess calories (principal); K21.9 Gastro-esophageal reflux disease without esophagitis; J44.9 Chronic obstructive pulmonary disease, unspecified; E03.9 Hypothyroidism, unspecified; F32.9 Major depressive disorder, single episode, unspecified; G47.33 Obstructive sleep apnea (adult) (pediatric); F41.9 Anxiety disorder, unspecified; M16.0 Bilateral primary osteoarthritis of hip; J18.9 Pneumonia, unspecified organism; K63.5 Polyp of colon; E78.1 Pure hyperglyceridemia; E55.9 Vitamin D deficiency, unspecified; N25.81 Secondary hyperparathyroidism of renal origin; E60 Dietary zinc deficiency; K29.51 Unspecified chronic gastritis with bleeding; K44.9 Diaphragmatic hernia without obstruction or gangrene; Z68.43 Body mass index [BMI] 50.0-59.9, adult; Z79.891 Long term (current) use of opiate analgesic; Z79.899 Other long term (current) drug therapy; Z79.890 Hormone replacement therapy; Z79.51 Long term (current) use of inhaled steroids
CPT/HCPCS: 99211

== ENCOUNTER → 2020-09-11 | Outpatient (CLI) | payer MEDICARE ==
[2020-09-11 09:35] VITALS: BMI 52.9
== END | disposition home or self-care (01) ==
LOC: BARWHC3 08:34
PROVIDERS: ATTEND Surgery Plastic and Reconstructive Surgery
DX: E66.01 Morbid (severe) obesity due to excess calories (principal); Z68.43 Body mass index [BMI] 50.0-59.9, adult; Z71.3 Dietary counseling and surveillance
CPT/HCPCS: 97804

== ENCOUNTER → 2020-09-15 | Outpatient (CLI) | payer MEDICARE ==
--- NOTE | 2020-09-15 13:18 | FL ---
EXAMINATION TYPE: FL barium swallow DATE OF EXAM: 09/15/2020 CLINICAL INDICATION: 60-year-old male dysphagia and epigastric pain, preop before weight loss surgery . COMPARISON: None Total Fluoroscopy Time: 2 minutes Total images: 44 FINDINGS: The swallowing mechanism is normal and hypopharyngeal anatomy is preserved. The cervical and thoracic portions have a normal course and caliber and normal motility. The mucosa i s normal and no persistent filling defect is encountered. There is a moderate-sized hiatal hernia with severe gastroesophageal reflux encountered with Valsalva maneuver. IMPRESSION: Moderate-sized hiatal hernia with severe gastroesophageal reflux with Valsalva maneuver.
== END | disposition home or self-care (01) ==
LOC: RADUSWWP 10:43
PROVIDERS: ATTEND Surgery Plastic and Reconstructive Surgery
DX: K44.9 Diaphragmatic hernia without obstruction or gangrene (principal); K21.9 Gastro-esophageal reflux disease without esophagitis
CPT/HCPCS: 74220

== ENCOUNTER → 2020-10-11 | Outpatient (CLI) | payer MEDICARE ==
[2020-10-11 14:59] VITALS: BP 131/84; PULSE 98; RESP 20; TEMP 99.4; BMI 51.4
--- NOTE | 2020-10-11 15:09 | P.PN ---
Subjective Progress Note Date: 10/11/20 DATE OF SERVICE: 10/11/2020 CHIEF COMPLAINT: Morbid obesity HISTORY OF PRESENT ILLNESS: Jalen Zaman is a 60-year-old male who comes in with lifelong morbid obesity. He has co-morbidities including hypertensive heart disease, chronic obstructive pulmonary disease with sleep apnea including osteoarthritis both hips secondary to his morbid obesity. He is looking into the sleeve gastrectomy. He has gastroesophageal reflux disease. He is looking into surgical options for weight loss. At height of 5 feet 5.5 inches, his ideal body weight is 149 pounds. He comes in 313 pounds from 320 pounds, 2 months ago. He has lost 7 pounds in 2 months. Body mass index was 52.4, now 51.5 He is 164 pounds overweight. PAST MEDICAL HISTORY: 1. Morbid obesity due to excess calories 2. Body mass index of 52.4, initial 3. Gastroesophageal reflux disease 4. Chronic obstructive pulmonary disease 5. Hypothyroidism 6. Depressive disorder 7. Obstructive sleep apnea 8. Pneumonia 9. Osteoarthritis hips 10. Depressive disorder 11. Anxiety disorder 12. Osteoarthritis hips 13. Colon polyps PAST SURGICAL HISTORY: 1. Left rotator cuff repair 2. Left hip replacement 3. Colonoscopy with polypectomy 4. Right hand surgery HOME MEDICATIONS: Home Medications Medication Instructions Recorded Confirmed Omeprazole [PriLOSEC] 20 mg PO AC-BID 05/29/16 08/23/20 QUEtiapine [SEROquel] 200 mg PO HS 05/29/16 08/23/20 Budesonide-Formot 160-4.5 Mcg 2 puff INHALATION RT-BID PRN 03/17/17 08/23/20 [Symbicort 160-4.5 Mcg Inhaler] Levothyroxine Sodium 25 mcg PO DAILY 03/17/17 08/23/20 Sertraline [Zoloft] 50 mg PO HS 03/17/17 08/23/20 Calcium Citrate 1,200 mg PO DAILY 07/12/20 08/23/20 Ergocalciferol [Vitamin D2 50,000 unit PO NOVAK 07/12/20 08/23/20 (DRISDOL)] Zinc 60 mg PO DAILY 07/12/20 08/23/20 ALLERGIES: Allergies Allergy/AdvReac Type Severity Reaction Status Date / Time No Known Allergies Allergy Verified 08/23/20 13:42 SOCIAL HISTORY: Past tobacco use. Marijuana, Methamphetamine. Drinks moderater beer weekly. FAMILY HISTORY: No family history of ulcerative colitis disease or Crohn's disease. Family history of morbid obesity. No lupus in the family. No reports of stomach or esophageal cancer. REVIEW OF ORGAN SYSTEMS: CONSTITUTIONAL: At height of 5 feet 5.5 inches, his ideal body weight is 149 pounds. He comes in 319 pounds. Body mass index is 52.4. He is 170 pounds overweight. HEENT: Denies any active troubles with vision or hearing. ENDOCRINE: Denies diabetes. Has hypothyroidism. CARDIOVASCULAR: Past reports of palpitations or heart attacks or chest pain. RESPIRATORY: Has daytime somnolence. Has COPD. GASTROINTESTINAL: Denies any bright red blood per rectum. No diarrhea. No constipation. Has gastroesophageal reflux disease MUSCULOSKELETAL: Has lower back pain and joint pain. Has osteoarthritis of the hips NEURO: No headaches. No seizure disorders. PSYCH: Has depression. No suicidal ideation. Has anxiety. History of drug abuse, past. RHEUMATOLOGIC: No lupus. No rheumatoid arthritis. HEMATOLOGIC: Denies any abnormal bleeding or bruising. No personal history of DVTs. SKIN: No rash. No skin cancer. PHYSICAL EXAM: VITAL SIGNS: Height 5 foot 5.5 inches, weight 320 pounds. BMI 52.6 Vital Signs Temp 99.4 F 10/11/20 14:47 Pulse 98 10/11/20 14:47 Resp 20 10/11/20 14:47 BP 131/84 10/11/20 14:47 Pulse Ox GENERAL: Well-developed in no acute distress. HEENT: No scleral icterus. Extraocular movements grossly intact. Hears conversational speech. No nasal drainage. NECK: Supple without lymphadenopathy. CHEST: Nonlabored respirations with equal bilateral excursions. CARDIOVASCULAR: Regular rate and regular rhythm. Distal 2+ pulses. ABDOMEN: Obese, soft, nontender, nondistended. MUSCULOSKELETAL: No clubbing, cyanosis. NEURO: No focal or lateralizing signs. Cranial nerves 2 through 12 grossly within normal limits. PSYCH: Appropriate affect. Alert and oriented to person, place and time. SKIN: Good skin turgor. Well perfused. STUDIES: Barium swallow independently reviewed with him demonstrates large fixed paraesophageal hiatal hernia with gastroesophageal reflux. This is my independent interpretation. RADIOLOGY: Barium swallow report confirms moderate sized hiatal hernia with moderate gastroesophageal reflux disease. ASSESSMENT: 1. Morbid obesity due to excess calories 2. Body mass index of 52, initial to 51.5 3. Gastroesophageal reflux disease 4. Chronic obstructive pulmonary disease 5. Hypothyroidism 6. Depressive disorder 7. Obstructive sleep apnea 8. Pneumonia 9. Osteoarthritis hips 10. Depressive disorder 11. Anxiety disorder 12. Osteoarthritis hips 13. Colon polyps 14. Hypertriglyceridemia 15. Vitamin D deficiency 16. Secondary hyperparathyroidism 17. Zinc deficiency 18. Chronic gastritis with bleeding 19. Paraesophageal diaphragmatic hiatal hernia PLAN: 1. With his barium swallow findings of large hiatal hernia and moderate to severe gastroesophageal reflux disease, sleeve gastrectomy at this time is contra-indicated with incarcerated stomach in the thoracic cavity. Recommend correction with paraesophageal hiatal hernia repair. 2. He has pre-existing lung disease with chronic obstructive lung disease including sleep apnea with morbid obesity, BMI over 50. He is elevated risk for perioperative complications for surgical intervention. 3. Robotic assisted hiatal hernia repair described with pre-operative 2 weeks protein diet advised. 4. Will need overnight hospitalization with identified co-morbidities. Objective - Vital Signs Vital signs: Vital Signs Temp 99.4 F 10/11/20 14:47 Pulse 98 10/11/20 14:47 Resp 20 10/11/20 14:47 BP 131/84 10/11/20 14:47 Pulse Ox Intake & Output 10/10/20 10/11/20 10/11/20 18:59 06:59 18:59 Weight 142.428 kg
== END | disposition home or self-care (01) ==
LOC: BARWHC3 13:45
PROVIDERS: ATTEND Surgery Plastic and Reconstructive Surgery
DX: E66.01 Morbid (severe) obesity due to excess calories (principal); K21.9 Gastro-esophageal reflux disease without esophagitis; J44.9 Chronic obstructive pulmonary disease, unspecified; E03.9 Hypothyroidism, unspecified; F32.9 Major depressive disorder, single episode, unspecified; G47.33 Obstructive sleep apnea (adult) (pediatric); J18.9 Pneumonia, unspecified organism; M16.0 Bilateral primary osteoarthritis of hip; F41.9 Anxiety disorder, unspecified; K63.5 Polyp of colon; E78.1 Pure hyperglyceridemia; E55.9 Vitamin D deficiency, unspecified; N25.81 Secondary hyperparathyroidism of renal origin; E60 Dietary zinc deficiency; K29.51 Unspecified chronic gastritis with bleeding; K44.9 Diaphragmatic hernia without obstruction or gangrene; Z68.43 Body mass index [BMI] 50.0-59.9, adult; Z79.890 Hormone replacement therapy; Z79.899 Other long term (current) drug therapy; Z79.891 Long term (current) use of opiate analgesic; Z79.51 Long term (current) use of inhaled steroids
CPT/HCPCS: 99211

== ENCOUNTER → 2020-10-18 | Outpatient (CLI) | payer MEDICARE ==
[2020-10-18 13:19] LABS: Basophils # (A) 0.1 k/uL (0-0.2); Basophils % (A) 1 %; Eosinophils # (A) 0.1 k/uL (0-0.7); Eosinophils % (A) 1 %; HCT 49.5 % (39.0-53.0); HGB 15.8 gm/dL (13.0-17.5); Lymphocytes # (A) 2.3 k/uL (1.0-4.8); Lymphocytes % (A) 27 %; MCH 27.9 pg (25.0-35.0); MCV 87.2 fL (80.0-100.0); Mean Platelet Volume 6.9; Monocytes # (A) 0.4 k/uL (0-1.0); Monocytes % (A) 5 %; Neutrophils # (A) 5.6 k/uL (1.3-7.7); Neutrophils % (A) 65 %; Platelet Count 222 k/uL (150-450); RBC 5.67 m/uL (4.30-5.90); RDW 14.2 % (11.5-15.5); WBC 8.6 k/uL (3.8-10.6)
[2020-10-18 13:27] LABS: Calcium 9.9 mg/dL (8.4-10.2); Potassium 5.1 mmol/L (3.5-5.1); Total Bilirubin 0.8 mg/dL (0.2-1.3); Total Protein 8.7 g/dL (6.3-8.2)
== END | disposition home or self-care (01) ==
LOC: LABPAT 12:23
PROVIDERS: ATTEND Surgery Plastic and Reconstructive Surgery
DX: Z01.818 Encounter for other preprocedural examination (principal)
CPT/HCPCS: 36415; 80053; 85025

== ENCOUNTER 2020-10-23 11:33 | Inpatient (IN) | payer MEDICARE ==
--- NOTE | 2020-10-23 06:29 | P.GSHP ---
History of Present Illness H&P Date: 10/23/20 CHIEF COMPLAINT: Paraesophageal hiatal hernia with gastroesophageal reflux disease. HISTORY OF PRESENT ILLNESS: The patient is a 60-year-old female who presents with paraesophageal hiatal hernia. He has completed an upper endoscopy workup. Now he presents for surgical intervention. PAST MEDICAL HISTORY: Please see list. PAST SURGICAL HISTORY: Please see list. MEDICATIONS: Please see list. ALLERGIES: Please see list. SOCIAL HISTORY: No illicit drug use FAMILY HISTORY: No reports of Crohn disease or ulcerative colitis. REVIEW OF ORGAN SYSTEMS: CONSTITUTIONAL: No reports of fevers or chills. GI: Denies any blood in stools or constipation. PHYSICAL EXAM: VITAL SIGNS: Stable GENERAL: Well-developed pleasant and in no acute distress. HEENT: No scleral icterus. Extraocular movements grossly intact. Moist buccal mucosa. NECK: Supple without lymphadenopathy. CHEST: Unlabored respirations. Equal bilateral excursions. CARDIOVASCULAR: Regular rate and rhythm. Distal 2+ pulses. ABDOMEN: Soft, nondistended. No peritoneal signs. MUSCULOSKELETAL: No clubbing, cyanosis, or edema. SKIN: Well-perfused. Good skin turgor. ASSESSMENT: 1. Diaphragmatic paraesophageal hiatal hernia with severe gastroesophageal reflux disease. PLAN: 1. Recommend proceeding with a robotic paraesophageal hiatal hernia with possible mesh. 2. Benefits and risks of surgical intervention was discussed including possibility of open technique. 3. Inpatient hospitalization recommended of 2 nights 4. DVT prophylaxis. 5. Antibiotic prophylaxis. 6. He has also completed a very low caloric high-protein diet to address underlying hepatomegaly. Past Medical History Past Medical History: COPD, GERD/Reflux, Hyperlipidemia, Sleep Apnea/CPAP/BIPAP, Thyroid Disorder Additional Past Medical History / Comment(s): hiatal hernia, torn rotator cuffs- wander shoulders. hx irregular heartbeat History of Any Multi-Drug Resistant Organisms: None Reported Past Surgical History: Cardiac Ablation, EPS, Joint Replacement, Orthopedic Surgery Additional Past Surgical History / Comment(s): Left rotator cuff repair/later pins removed, left hip replacment, colonoscopy/polypectomy(benign), fx index finger rt hand-pins, wander Catatract surgery. Past Anesthesia/Blood Transfusion Reactions: No Reported Reaction Smoking Status: Former smoker - Past Family History Father Family Medical History: Deep Vein Thrombosis (DVT) Additional Family Medical History / Comment(s): . Mother Family Medical History: Eye Disorder, Osteoarthritis (OA) Medications and Allergies Home Medications Medication Instructions Recorded Confirmed Type Omeprazole [PriLOSEC] 20 mg PO AC-BID 05/29/16 10/18/20 History QUEtiapine [SEROquel] 200 mg PO HS 05/29/16 10/18/20 History Budesonide-Formot 160-4.5 Mcg 2 puff INHALATION RT-BID PRN 03/17/17 10/18/20 History [Symbicort 160-4.5 Mcg Inhaler] Levothyroxine Sodium 25 mcg PO DAILY 03/17/17 10/18/20 History Escitalopram [Lexapro] 10 mg PO DAILY 10/18/20 10/18/20 History Allergies Allergy/AdvReac Type Severity Reaction Status Date / Time No Known Allergies Allergy Verified 10/18/20 08:52
[~2020-10-23 11:33] MED LIST changes: +ACETAMINOPHEN TAB 500 MG TAB PO STA; +CHLORHEXIDINE GLUCONATE 15 ML CUP MUCOUS MEM PRN; +DEXAMETHASONE SOD PHOSPHATE 4 MG/ML 1 ML VIAL IV ONE; +ENOXAPARIN 40 MG/0.4 ML SYRINGE SQ PRN; +GABAPENTIN 300 MG CAP PO STA; +HYDROmorphone 0.5 MG/0.5 ML SYRINGE IVP PRN; -LACTATED RINGERS 1,000 ML IV SCH; +LIDOCAINE 1% (10MG/ML) FOR IV START INTRADERMA PRN; +MELOXICAM 7.5 MG TAB PO SCH; +ONDANSETRON 4 MG/2 ML VIAL IVP ONE; +PANTOPRAZOLE 40 MG/10 ML VIAL IVP PRN; +SCOPOLAMINE 1.5MG/72HR PATCH TRANSDERM ONE; +TAMSULOSIN 0.4 MG CAP.ER.24H PO ONE; +ceFAZolin 3 GM in SODIUM CHLORIDE 0.9% 100 ML IVPB PRN
[2020-10-23] MEDS: LACTATED RINGERS 1,000 ML IV SCH (11:59)
[2020-10-23] MEDS ORDERED: NEOSTIGMINE 1 MG/ML 10 ML VIAL ONE (12:12)
[2020-10-23] MEDS ORDERED: PHENYLEPHRINE-0.9% NACL SYG 1,000 MCG/10 ML SYRINGE ONE (12:12)
[2020-10-23] MEDS ORDERED: SUCCINYLCHOLINE CHLORIDE VIAL 200 MG/10 ML VIAL IV ONE (12:12)
[2020-10-23] MEDS ORDERED: PROPOFOL 10 MG/ML 20 ML VIAL IV ONE (12:12)
[2020-10-23] MEDS ORDERED: LIDOCAINE 1% INJ 10MG/ML (20 ML MDV) ONE (12:12)
[2020-10-23] MEDS ORDERED: GLYCOPYRROLATE 0.2 MG/ML 2 ML VIAL ONE (12:12)
[2020-10-23] MEDS ORDERED: ROCURONIUM 10 MG/ML (5 ML VIAL) IV ONE (12:12)
[2020-10-23] MEDS ORDERED: MIDAZOLAM 2 MG/2 ML VIAL ONE (12:12)
[2020-10-23] MEDS ORDERED: fentaNYL (PF) 50 MCG/ML 2 ML AMP ONE (12:12)
[2020-10-23 12:16] LABS: Albumin 5.4 g/dL (3.5-5.0); Calcium 10.5 mg/dL (8.4-10.2); Potassium 4.8 mmol/L (3.5-5.1); Total Bilirubin 0.8 mg/dL (0.2-1.3); Total Protein 9.2 g/dL (6.3-8.2)
[2020-10-23] MEDS ORDERED: BUPIVACAIN-EPI 0.5%-1:200,000 30 ML VIAL SQ ONE (12:50)
[2020-10-23] MEDS ORDERED: SYMBICORT 160-4.5 MCG INHALER INHALATION PRN (15:53)
[2020-10-23] MEDS ORDERED: HYOSCYAMINE ORAL DROPS 1.875 MG/15 ML BOTTLE PO PRN (15:54)
[2020-10-23] MEDS ORDERED: ONDANSETRON 4 MG/2 ML VIAL IVP PRN (15:54)
[2020-10-23] MEDS ORDERED: diphenhydrAMINE 50 MG/ML 1 ML VIAL IVP PRN (15:54)
[2020-10-23] MEDS ORDERED: NALOXONE 0.4 MG/ML 1 ML VIAL IV PRN (15:54)
[2020-10-23] MEDS ORDERED: DEXAMETHASONE SOD PHOSPHATE 10 MG/ML 1 ML VIAL IV PRN (15:56)
[2020-10-23] MEDS ORDERED: LABETALOL 5 MG/ML VIAL MDV IVP ONE (16:13)
[2020-10-23] MEDS ORDERED: ACETAMINOPHEN IV (For NPO) 1,000 MG in EMPTY BAG 1 BAG IVPB ONE (17:00)
[2020-10-23] MEDS: ALBUTEROL NEBULIZED 2.5 MG/3 ML INHALATION SCH ×2 (17:31→20:01)
[2020-10-23] MEDS: DEXAMETHASONE SOD PHOSPHATE 4 MG/ML 1 ML VIAL IV SCH ×2 (17:40→23:00)
[2020-10-23] MEDS: HYDROmorphone 1 MG/ML 1 ML SYRINGE IVP PRN (17:41)
[2020-10-23] MEDS: SIMETHICONE 40 MG/0.6 ML DROPS 2,000 MG/30 ML BOTTLE PO SCH ×2 (17:42→23:00)
[2020-10-23] MEDS ORDERED: QUEtiapine 200 MG TAB PO SCH (21:00)
[2020-10-23] MEDS: 0.9% NACL WITH KCL 20 MEQ/L 1,000 ML IV SCH (23:00)
[2020-10-24] MEDS: HYDROmorphone 1 MG/ML 1 ML SYRINGE IVP PRN (04:49)
--- NOTE | 2020-10-24 05:07 | P.OP ---
Date of Procedure: 10/23/20 Description of Procedure: SURGEON: YVES NIELSEN MD PREOPERATIVE DIAGNOSES: 1. Symptomatic paraesophageal diaphragmatic hiatal hernia. 2. Morbid obesity due to excess calories, body mass index of 52 3. Gastroesophageal reflux disease 4. Chronic obstructive pulmonary disease 5. Hypothyroidism 6. Depressive disorder 7. Obstructive sleep apnea 8. Osteoarthritis hips 9. Anxiety disorder 10. Hypertriglyceridemia 11. Vitamin D deficiency 12. Secondary hyperparathyroidism 13. Zinc deficiency 14. Chronic gastritis with bleeding POSTOPERATIVE DIAGNOSES: 1. Paraesophageal midline diaphragmatic hernia, 8 cm, with incarceration, type III paraesophageal hiatal hernia 2. Morbid obesity due to excess calories, body mass index of 52 3. Gastroesophageal reflux disease 4. Chronic obstructive pulmonary disease 5. Hypothyroidism 6. Depressive disorder 7. Obstructive sleep apnea 8. Osteoarthritis hips 9. Anxiety disorder 10. Hypertriglyceridemia 11. Vitamin D deficiency 12. Secondary hyperparathyroidism 13. Zinc deficiency 14. Chronic gastritis with bleeding 15. Hepatomegaly with fatty liver disease OPERATION: 1. Robotic-assisted da Ryley Xi laparoscopic repair of incarcerated paraesophageal hiatal hernia, 6 x 8 cm, with Ellijay Biopatch A 8 x 8 cm. 2. Robotic-assisted da Ryley Xi laparoscopic resection of mediastinal mass, over 8 cm removed in piece 3. Intraoperative esophagogastroduodenoscopy ANESTHESIA: General with local anesthetic. ESTIMATED BLOOD LOSS: 10 mL SPECIMENS REMOVED: None COMPLICATIONS: None. Condition: stable Disposition: floor FINDINGS: 1. Midline incarcerated paraesophageal hiatal hernia 6 x 8 cm, 3, over 40% incarceration of stomach, type III paraesophageal hiatal hernia 2. Intraoperative upper endoscopy confirms complete closure of hiatal hernia from Hill grade 4 to Hill grade 1 3. Intraesophageal length, 2 cm 4. Incarcerated mediastinal lipoma/mass over 8 cm excised and removed in piecemeal INDICATIONS: The patient is a 60-year-old male who presents with gastroesophageal reflux disease poorly controlled despite medications, and a symptomatic diaphragmatic hiatal hernia. Preoperative workup including upper endoscopy demonstrated a large incarcerated hiatal hernia. Surgical intervention was described. Benefits and risks including bleeding, infection, recurrence, dysphagia, injury to the lung, need for further surgery was described at length. Informed consent was obtained. DESCRIPTION: The patient was brought into the operating room and placed in supine position. Preoperatively the patient had received subcutaneous DVT prophylaxis. After general induction, the abdomen was prepped and draped in standard sterile fashion. The patient had previously voided prior to coming to the operating room. Ioban draping was placed along the abdomen. A timeout protocol was confirmed with the surgical team, for which the patient's name, procedure to be performed including DVT prophylaxis with bilateral SCDs, and preoperative antibiotics were also confirmed. A robotic da Ryley Xi system was prepped and primed. At 15 cm from the xiphoid to just below the umbilicus, proposed port sites were marked with indelible marker along the left axillary line, left mid-clavicular line with each ports were marked 10 cm from each other. A 5 mm 0 degrees laparoscopic trocar entry was performed along the left upper quadrant. The abdomen was insufflated to 15 mmHg pressure was tolerated well. Diagnostic laparoscopy demonstrated no injury to bowel, viscera, or mesentery. No injury had occurred to the small bowel or viscera. The liver surface was yellow consistent with fatty liver disease including mild hepatomegaly despite his two- week high-protein low-carb diet. Next, one 8 mm robotic port was placed along the right upper abdomen. An 8-mm port was were placed along the right lateral lateral abdominal wall. The camera 8-mm port was maintained along the epigastrium. Another 12 mm port was placed along the left upper abdominal wall after exchanging the 5 mm port. Please note that the ports were placed at least 20 cm away from the target anatomy. Care was taken to check that each robotic arm were safely away from collision with the bed or the patient. At the epigastrium, a medium sized Diallo liver retractor was placed under direct visualization with the Iron Production Checker placed under the right shoulder of the patient. All robotic arms were used. The patient was repositioned in reverse Trendelenburg position at 21-degrees after lowering the bed. The robot was docked above the right side of the patient. Using a grasper for arm 3, a grasper for arm 1, including vessel sealer for arm 2, the robotic system was docked and primed as described. Instruments were interchanged by the preschool assistant principal. I had sat at the console. An initial attempt reduction of the paraesophageal hiatal hernia demonstrated a large mediastinal mass consistent with lipoma over 8 cm in size. A type III paraesophageal hiatal hernia with 40% proximal stomach including gastric cardia was incarcerated into the mediastinum. The gastrohepatic ligament was cleaved using a vessel sealer. Next, the phrenoesophageal ligament was mobilized and the distal esophagus was mobilized circumferentially. The left and right crura was identified. Circumferentially, the hernia sac was excised and brought into the peritoneal cavity. The mass was removed in piecemeal after measuring with a ruler. Additionally, intraoperative EGD was performed for assessment of the GE junction including proximal gastric cardia. Moderate dissection into the mediastinum was performed to release the esophagus into the abdominal cavity. The paraesophageal hiatal hernia sac was also incised and divided from the esophagus. Care was taken to avoid any gastrotomy. The measured defect was consistent with 8 cm axial length and 6 cm in width. After dissection, the distal esophagus of 2 cm was brought into the abdominal cavity. Once the hiatus and crura was dissected, 2-0 VLOC nonabsorbable suture was placed to reapproximate the diaphragmatic hiatus posteriorly. To buttress the repair, a Ellijay Biopatch A was prepared along the back table and cut in half of a winchester-hole fashion as to reinforce the repair as an underlay. The mesh was placed along the crural repair and tagged using horizontal mattress sutures using 2-0 VLOC. I went to the head of the bed to perform intraoperative esophagogastroduodenoscopy. An Olympus gastroscope was passed through posterior oropharynx. Retroflexion of the scope confirmed a Hill grade 1 lower esophageal valve. No evidence of gastric ulcers were identified or duodenal ulcers with advancement into the duodenum. Proximal gastritis along the gastric cardia was confirmed. The stomach had been desufflated. No evidence of leaks were found of the esophagus or stomach. The GI tract with desufflated This concluded the endoscopic portion of the case. The robot was undocked from the patient. I re-scrubbed into the case. All instruments and pneumoperitoneum and specimens were evacuated from the abdominal cavity. Incisions were reapproximated using 4-0 Monocryl in an interrupted subcuticular fashion. Liquid glue was applied to the skin. Local anesthetic was infiltrated in all wounds for postop analgesia. At the end of the procedure, needle, sponge, and instrument count was verified correct by the surgical instrument mechanic. The patient had tolerated the procedure well and was taken to the postanesthesia unit in stable condition.
[2020-10-24] MEDS: DEXAMETHASONE SOD PHOSPHATE 4 MG/ML 1 ML VIAL IV SCH ×2 (05:41→13:12)
[2020-10-24] MEDS: SIMETHICONE 40 MG/0.6 ML DROPS 2,000 MG/30 ML BOTTLE PO SCH ×2 (05:41→13:08)
[2020-10-24] MEDS: 0.9% NACL WITH KCL 20 MEQ/L 1,000 ML IV SCH ×2 (05:41→06:58)
[2020-10-24] MEDS: LACTATED RINGERS 1,000 ML IV SCH (05:42)
[2020-10-24] MEDS ORDERED: LEVOTHYROXINE 25 MCG TAB PO SCH (06:30)
[2020-10-24] MEDS ORDERED: 0.9% NACL WITH KCL 20 MEQ/L 1,000 ML IV SCH (08:00)
[2020-10-24 08:20] VITALS: BP 134/84; RESP 16; TEMP 97.8
[2020-10-24] MEDS ORDERED: ENOXAPARIN 40 MG/0.4 ML SYRINGE SQ SCH (09:00)
[2020-10-24] MEDS ORDERED: ESCITALOPRAM 10 MG TAB PO SCH (09:00)
[2020-10-24] MEDS ORDERED: PANTOPRAZOLE 40 MG/10 ML VIAL IV SCH (09:00)
[2020-10-24] MEDS: ALBUTEROL NEBULIZED 2.5 MG/3 ML INHALATION SCH ×2 (09:17→12:04)
--- NOTE | 2020-10-24 09:41 | FL ---
EXAMINATION TYPE: FL UGI DATE OF EXAM: 10/24/2020 LIMITED UGI-ESOPHAGRAM: CLINICAL HISTORY: Hiatal hernia status post David fundoplication surgery yesterday. TECHNIQUE: Limited esophagram is performed utilizing 25 oz of Isovue-370. A total of 23 seconds of f luoroscopic time was utilized during procedure and 34 images obtained. Comparison: Prior swallow study September 15, 2020 FINDINGS: The patient swallowed contrast without difficulty or delay. Esophageal peristalsis and mo tility are within normal limits. There is mild delay in flow of contrast along the diaphragmatic hiat us into the stomach, there is no evidence of contrast extravasation to suggest leak. No persistent hi atal hernia is seen after surgery. Patient remains asymptomatic. IMPRESSION: No evidence of leak or significant obstruction status post Kvng fundoplication surgery yesterday.
[2020-10-24 11:22] LABS: Basophils # (A) 0.01 X 10*3/uL (0.00-0.10); Basophils % (A) 0.1 %; Eosinophils # (A) 0 X 10*3/uL (0.04-0.35); Eosinophils % (A) 0 %; HCT 43.8 % (39.6-50.0); HGB 13.5 g/dL (13.0-17.0); Lymphocytes # (A) 0.83 X 10*3/uL (0.90-5.00); Lymphocytes % (A) 10.8 %; MCHC 30.8 g/dL (32.0-37.0); MCV 87.6 fL (80.0-97.0); Mean Platelet Volume 10.2 fL (9.5-12.2); Monocytes # (A) 0.44 X 10*3/uL (0.20-1.00); Monocytes % (A) 5.7 %; Neutrophils % (A) 82.9 %; Platelet Count 201 X 10*3/uL (140-440); RDW 14.3 % (11.5-14.5); WBC 7.72 X 10*3/uL (4.50-10.00)
[2020-10-24 11:32] VITALS: BMI 48.7
[2020-10-24 11:45] LABS: African American GFR (CKD) 75.2 (60.0-200.0); Anion Gap 7.3 mmol/L (4.00-12.00); Calcium 8.7 mg/dL (8.7-10.3); Carbon Dioxide 23.7 mmol/L (21.6-31.8); Magnesium 1.8 mg/dL (1.5-2.4); Non-African American GFR(CKD) 64.9 (60.0-200.0); Potassium 4.7 mmol/L (3.5-5.5)
[2020-10-24 12:20] VITALS: PULSE 77
--- NOTE | 2020-10-24 13:30 | P.DS ---
<Jana Harrison - Last Filed: 10/24/20 13:26> Providers Expected date of discharge: 10/24/20 Hospital Course: Discharge diagnosis 1. Paraesophageal midline diaphragmatic hernia, 8 cm, with incarceration, type III paraesophageal hiatal hernia status post Robotic-assisted da Ryley Xi laparoscopic repair of incarcerated paraesophageal hiatal hernia, resection of mediastinal mass 3. Intraoperative esophagogastroduodenoscopy 2. Morbid obesity due to excess calories, body mass index of 52 3. Gastroesophageal reflux disease 4. Chronic obstructive pulmonary disease 5. Hypothyroidism 6. Depressive disorder 7. Obstructive sleep apnea 8. Osteoarthritis hips 9. Anxiety disorder 10. Hypertriglyceridemia 11. Vitamin D deficiency 12. Secondary hyperparathyroidism 13. Zinc deficiency 14. Chronic gastritis with bleeding 15. Hepatomegaly with fatty liver disease Hospital course The patient is a 60-year-old male who presents with paraesophageal hiatal hernia. He has completed an upper endoscopy workup. Now he presents for surgical intervention. Patient is status post Robotic-assisted da Ryley Xi laparoscopic repair of incarcerated paraesophageal hiatal hernia, resection of mediastinal mass. Patient has tolerated surgery well. His pain is controlled. He is tolerating diet. He is up and ambulating. He is afebrile. He is stable for discharge. Physician [employer] note has been reviewed by physician. Signing provider agrees with the documented findings, assessment, and plan of care. Patient Condition at Discharge: Good Plan - Discharge Summary Discharge Rx Participant: No New Discharge Prescriptions: New Acetaminophen Tab [Tylenol Tab] 1,000 mg PO Q6H PRN #30 tablet PRN Reason: Pain Continue QUEtiapine [SEROquel] 200 mg PO HS Omeprazole [PriLOSEC] 20 mg PO AC-BID Budesonide-Formot 160-4.5 Mcg [Symbicort 160-4.5 Mcg Inhaler] 2 puff INHALATION RT-BID PRN PRN Reason: Shortness Of Breath Levothyroxine Sodium 25 mcg PO DAILY Escitalopram [Lexapro] 10 mg PO DAILY Discharge Medication List Omeprazole [PriLOSEC] 20 mg PO AC-BID 05/29/16 [History] QUEtiapine [SEROquel] 200 mg PO HS 05/29/16 [History] Budesonide-Formot 160-4.5 Mcg [Symbicort 160-4.5 Mcg Inhaler] 2 puff INHALATION RT-BID PRN 03/17/17 [History] Levothyroxine Sodium 25 mcg PO DAILY 03/17/17 [History] Escitalopram [Lexapro] 10 mg PO DAILY 10/18/20 [History] Acetaminophen Tab [Tylenol Tab] 1,000 mg PO Q6H PRN #30 tablet 10/24/20 [Rx] Follow up Appointment(s)/Referral(s): [place], [place] [NON-STAFF] - 10/27/20 9:00 am Patient Instructions/Handouts: Hiatal Hernia (DC) Activity/Diet/Wound Care/Special Instructions: NO lifting over 4 pounds for 4 weeks, until November 20. May shower. Notify bariatric center for temp over 101.0, increased pain, drainage from incisions. No straws or carbonated beverages. Use ice along incisions for the today to prevent swelling. CRUSH, OPEN, OR CUT TABLETS LARGER THAN A SIZE OF A TIC TAC Continue a bariatric full liquid diet Discharge Disposition: HOME SELF-CARE <Verenice Brady - Last Filed: 10/25/20 10:11> Providers Date of admission: 10/23/20 15:45 Attending physician: Verenice Brady Primary care physician: Buddy Alcazar - Discharge Diagnosis(es) (1) Gastroesophageal reflux disease Status: Acute (2) Mediastinal tumor Status: Acute (3) Paraesophageal hernia with obstruction but no gangrene Status: Acute Hospital Course: As above. Esophagram independently reviewed with complete reduction of paraesophageal hiatal hernia. Patient to continue with bariatric diet upon discharge. Follow-up in the bariatric center in 4 days.
[2020-10-25] MEDS ORDERED: bisacodyL 5 MG TABLET.DR PO PRN (08:00)
== END 2020-10-24 13:53 | disposition home or self-care (01) | DRG 327 ==
LOC: OR 11:33 → 4SSUR 15:45
PROVIDERS: ADMIT Surgery Plastic and Reconstructive Surgery; ATTEND Surgery Plastic and Reconstructive Surgery
PROC: 8E0W4CZ Robotic Assisted Procedure of Trunk Region, Percutaneous Endoscopic Approach (ICD-10-PCS; principal; 2020-10-23 11:35)
PROC: 0BUT4JZ Supplement Diaphragm with Synthetic Substitute, Percutaneous Endoscopic Approach (ICD-10-PCS; principal; 2020-10-23 11:35)
PROC: 0DJ08ZZ Inspection of Upper Intestinal Tract, Via Natural or Artificial Opening Endoscopic (ICD-10-PCS; principal; 2020-10-23 11:35)
PROC: 0WBC4ZZ Excision of Mediastinum, Percutaneous Endoscopic Approach (ICD-10-PCS; principal; 2020-10-23 11:35)
DX: K44.0 Diaphragmatic hernia with obstruction, without gangrene (principal); Z68.42 Body mass index [BMI] 45.0-49.9, adult; N25.81 Secondary hyperparathyroidism of renal origin; K76.0 Fatty (change of) liver, not elsewhere classified; E66.01 Morbid (severe) obesity due to excess calories; J44.9 Chronic obstructive pulmonary disease, unspecified; K29.50 Unspecified chronic gastritis without bleeding; K21.9 Gastro-esophageal reflux disease without esophagitis; R16.0 Hepatomegaly, not elsewhere classified; D17.4 Benign lipomatous neoplasm of intrathoracic organs; G47.33 Obstructive sleep apnea (adult) (pediatric); E03.9 Hypothyroidism, unspecified; E78.5 Hyperlipidemia, unspecified; F32.9 Major depressive disorder, single episode, unspecified; M16.11 Unilateral primary osteoarthritis, right hip; F41.9 Anxiety disorder, unspecified; E78.1 Pure hyperglyceridemia; E60 Dietary zinc deficiency; E55.9 Vitamin D deficiency, unspecified; Z79.51 Long term (current) use of inhaled steroids; Z79.890 Hormone replacement therapy; Z79.899 Other long term (current) drug therapy; Z87.39 Personal history of other diseases of the musculoskeletal system and connective tissue; Z96.642 Presence of left artificial hip joint; Z98.42 Cataract extraction status, left eye; Z98.41 Cataract extraction status, right eye; Z71.3 Dietary counseling and surveillance; Z98.890 Other specified postprocedural states; Z87.19 Personal history of other diseases of the digestive system; Z87.81 Personal history of (healed) traumatic fracture; Z87.891 Personal history of nicotine dependence; Z83.2 Family history of diseases of the blood and blood-forming organs and certain disorders involving the immune mechanism; Z83.518 Family history of other specified eye disorder; Z82.61 Family history of arthritis
CPT/HCPCS: 74240; 80051; 80053; 82310; 82565; 83735; 84100; 84520; 85025; 86850; 86900; 86901; 88302; 94640; 94760

== ENCOUNTER → 2020-10-27 | Outpatient (CLI) | payer MEDICARE ==
[2020-10-27 09:25] VITALS: BP 120/86; PULSE 73; RESP 16; TEMP 98.4; BMI 49.8
--- NOTE | 2020-10-27 11:07 | P.PN ---
Subjective Progress Note Date: 10/27/20 DATE OF SERVICE: 10/27/2020 CHIEF COMPLAINT: Status post hiatal hernia repair HISTORY OF PRESENT ILLNESS: Jalen Zaman is a 60-year-old male who is status post paraesophageal hiatal hernia repair 10/23/2020. He reports improved breathing with excision of large mediastinal tumor. He is no longer dyspneic. No reports of gastroesophageal reflux disease. He is tolerating liquids. He is on clear liquid diet. He reports he cannot read and is illiterate. At height of 5 feet 5.5 inches, his ideal body weight is 149 pounds. Highest weight is 320 pounds, BMI 52.6. He comes in 303 pounds from 313 pounds, 2 weeks ago. He has lost 10 pounds in 2 weeks. Body mass index was 52.6, now 49.8. Lifetime weight loss of 17 pounds. Percent excess weight loss lifetime is 10%. He is 154 pounds overweight. PHYSICAL EXAM: VITAL SIGNS: Height 5 foot 5.5 inches, weight 320 pounds. BMI 52.6 Vital Signs Temp 98.4 F 10/27/20 09:21 Pulse 73 10/27/20 09:21 Resp 16 10/27/20 09:21 BP 120/86 10/27/20 09:21 Pulse Ox GENERAL: Well-developed in no acute distress. HEENT: No scleral icterus. Extraocular movements grossly intact. Hears conversational speech. No nasal drainage. NECK: Supple without lymphadenopathy. CHEST: Nonlabored respirations with equal bilateral excursions. CARDIOVASCULAR: Regular rate and regular rhythm. Distal 2+ pulses. ABDOMEN: Obese, soft, nontender, nondistended. Incisions clean dry and intact. No infection. MUSCULOSKELETAL: No clubbing, cyanosis. NEURO: No focal or lateralizing signs. Cranial nerves 2 through 12 grossly within normal limits. PSYCH: Appropriate affect. Alert and oriented to person, place and time. SKIN: Good skin turgor. Well perfused. ASSESSMENT: 1. Morbid obesity due to excess calories 2. Body mass index of 52, initial to 49.8 3. Gastroesophageal reflux disease 4. Chronic obstructive pulmonary disease 5. Hypothyroidism 6. Depressive disorder 7. Obstructive sleep apnea 8. Pneumonia 9. Osteoarthritis hips 10. Depressive disorder 11. Anxiety disorder 12. Osteoarthritis hips 13. Colon polyps 14. Hypertriglyceridemia 15. Vitamin D deficiency 16. Secondary hyperparathyroidism 17. Zinc deficiency 18. Chronic gastritis with bleeding 19. Status posst paraesophageal diaphragmatic hiatal hernia repair 20. Illiteracy PLAN: 1. He is looking into the sleeve gastrectomy and will need completely recovery from repair of extremely large paraesophageal hiatal hernia prior to next stage of his procedure, at earliest November. 2. Lifting restriction of 4 pounds reinforced for 4 weeks. 3. Follow-up in 1 week. 4. He reports that he cannot read. Careful discussion including encouraging mu ltiple questions and reinforcing dietary education and risks to all procedures were described. 5. Advance diet to protein shakes and continue liquid diet. Objective - Vital Signs Vital signs: Vital Signs Temp 98.4 F 10/27/20 09:21 Pulse 73 10/27/20 09:21 Resp 16 10/27/20 09:21 BP 120/86 10/27/20 09:21 Pulse Ox Intake & Output 10/26/20 10/27/20 10/27/20 18:59 06:59 18:59 Weight 137.892 kg
== END | disposition home or self-care (01) ==
LOC: BARWHC3 08:33
PROVIDERS: ATTEND Surgery Plastic and Reconstructive Surgery
DX: E66.01 Morbid (severe) obesity due to excess calories (principal); K21.9 Gastro-esophageal reflux disease without esophagitis; J44.9 Chronic obstructive pulmonary disease, unspecified; E03.9 Hypothyroidism, unspecified; F32.9 Major depressive disorder, single episode, unspecified; G47.33 Obstructive sleep apnea (adult) (pediatric); J18.9 Pneumonia, unspecified organism; M16.10 Unilateral primary osteoarthritis, unspecified hip; F41.9 Anxiety disorder, unspecified; K63.5 Polyp of colon; E78.1 Pure hyperglyceridemia; E55.9 Vitamin D deficiency, unspecified; E21.3 Hyperparathyroidism, unspecified; E60 Dietary zinc deficiency; K29.71 Gastritis, unspecified, with bleeding; Z68.42 Body mass index [BMI] 45.0-49.9, adult; Z55.0 Illiteracy and low-level literacy; Z79.890 Hormone replacement therapy; Z79.899 Other long term (current) drug therapy; Z87.891 Personal history of nicotine dependence; Z98.890 Other specified postprocedural states
CPT/HCPCS: 99211

== ENCOUNTER → 2020-11-01 | Outpatient (CLI) | payer MEDICARE ==
[2020-11-01 14:47] VITALS: BP 124/97; PULSE 83; RESP 18; TEMP 99; BMI 48.9
--- NOTE | 2020-11-01 15:23 | P.PN ---
Subjective Progress Note Date: 11/01/20 He is doing very well. Breathing very well. Looking into his sleeve. He is looking into the sleeve. He is on pureed. Objective - Vital Signs Vital signs: Vital Signs Temp 99 F 11/01/20 14:44 Pulse 83 11/01/20 14:44 Resp 18 11/01/20 14:44 BP 124/97 11/01/20 14:44 Pulse Ox Intake & Output 10/31/20 11/01/20 11/01/20 18:59 06:59 18:59 Weight 135.624 kg
== END ==
LOC: BARWHC3 13:47
PROVIDERS: ATTEND Surgery Plastic and Reconstructive Surgery
DX: E66.01 Morbid (severe) obesity due to excess calories (principal); Z68.42 Body mass index [BMI] 45.0-49.9, adult; Z87.891 Personal history of nicotine dependence; Z98.890 Other specified postprocedural states
CPT/HCPCS: 99211

== ENCOUNTER → 2020-11-22 | Outpatient (CLI) | payer MEDICARE ==
[2020-11-22 13:25] LABS: HCT 49.2 % (39.0-53.0); MCH 27.9 pg (25.0-35.0); MCHC 32.6 g/dL (31.0-37.0); MCV 85.7 fL (80.0-100.0); Mean Platelet Volume 7.1; Platelet Count 235 k/uL (150-450); RBC 5.74 m/uL (4.30-5.90); RDW 15.1 % (11.5-15.5); WBC 7.6 k/uL (3.8-10.6)
== END | disposition home or self-care (01) ==
LOC: LABPAT 12:42
PROVIDERS: ATTEND Surgery Plastic and Reconstructive Surgery
DX: Z01.818 Encounter for other preprocedural examination (principal)
CPT/HCPCS: 85027

== ENCOUNTER 2020-11-27 06:34 | Inpatient (IN) | payer MEDICARE ==
--- NOTE | 2020-11-27 05:06 | P.GSHP ---
History of Present Illness H&P Date: 11/27/20 CHIEF COMPLAINT: Morbid obesity HISTORY OF PRESENT ILLNESS: Jalen Zaman is a 60-year-old male who comes in with lifelong morbid obesity. He has co-morbidities including hypertensive heart disease, chronic obstructive pulmonary disease with sleep apnea including osteoarthritis both hips secondary to his morbid obesity. He is looking into the sleeve gastrectomy. He is status post hiatal hernia repair. He is looking into surgical options for weight loss. At height of 5 feet 5.5 inches, his ideal body weight is 149 pounds. He comes in 287 pounds from 313 pounds, 1 month ago. He has lost 26 pounds in 1 month. Body mass index was 52.6, now 47.2. He is 138 pounds overweight. PAST MEDICAL HISTORY: 1. Morbid obesity due to excess calories 2. Body mass index of 52.4, initial 3. Gastroesophageal reflux disease 4. Chronic obstructive pulmonary disease 5. Hypothyroidism 6. Depressive disorder 7. Obstructive sleep apnea 8. Pneumonia 9. Osteoarthritis hips 10. Depressive disorder 11. Anxiety disorder 12. Osteoarthritis hips 13. Colon polyps PAST SURGICAL HISTORY: 1. Left rotator cuff repair 2. Left hip replacement 3. Colonoscopy with polypectomy 4. Right hand surgery 5. Status post paraesophageal hiatal hernia repair HOME MEDICATIONS: Home Medications Medication Instructions Recorded Confirmed Omeprazole [PriLOSEC] 20 mg PO AC-BID 05/29/16 08/23/20 QUEtiapine [SEROquel] 200 mg PO HS 05/29/16 08/23/20 Budesonide-Formot 160-4.5 Mcg 2 puff INHALATION RT-BID PRN 03/17/17 08/23/20 [Symbicort 160-4.5 Mcg Inhaler] Levothyroxine Sodium 25 mcg PO DAILY 03/17/17 08/23/20 Sertraline [Zoloft] 50 mg PO HS 03/17/17 08/23/20 Calcium Citrate 1,200 mg PO DAILY 07/12/20 08/23/20 Ergocalciferol [Vitamin D2 50,000 unit PO NOVAK 07/12/20 08/23/20 (DRISDOL)] Zinc 60 mg PO DAILY 07/12/20 08/23/20 ALLERGIES: Allergies Allergy/AdvReac Type Severity Reaction Status Date / Time No Known Allergies Allergy Verified 08/23/20 13:42 SOCIAL HISTORY: Past tobacco use. Marijuana, Methamphetamine. Drinks moderater beer weekly. FAMILY HISTORY: No family history of ulcerative colitis disease or Crohn's disease. Family history of morbid obesity. No lupus in the family. No reports of stomach or esophageal cancer. REVIEW OF ORGAN SYSTEMS: CONSTITUTIONAL: At height of 5 feet 5.5 inches, his ideal body weight is 149 pounds. He was 320 pounds. Body mass index is 52.6. He is 170 pounds overweight. HEENT: Denies any active troubles with vision or hearing. ENDOCRINE: Denies diabetes. Has hypothyroidism. CARDIOVASCULAR: Past reports of palpitations or heart attacks or chest pain. RESPIRATORY: Has daytime somnolence. Has COPD. GASTROINTESTINAL: Denies any bright red blood per rectum. No diarrhea. No constipation. Has gastroesophageal reflux disease MUSCULOSKELETAL: Has lower back pain and joint pain. Has osteoarthritis of the hips NEURO: No headaches. No seizure disorders. PSYCH: Has depression. No suicidal ideation. Has anxiety. History of drug abuse, past. RHEUMATOLOGIC: No lupus. No rheumatoid arthritis. HEMATOLOGIC: Denies any abnormal bleeding or bruising. No personal history of DVTs. SKIN: No rash. No skin cancer. PHYSICAL EXAM: VITAL SIGNS: Height 5 foot 5.5 inches, weight 287 pounds. BMI 47.2 GENERAL: Well-developed in no acute distress. HEENT: No scleral icterus. Extraocular movements grossly intact. Hears conversational speech. No nasal drainage. NECK: Supple without lymphadenopathy. CHEST: Nonlabored respirations with equal bilateral excursions. CARDIOVASCULAR: Regular rate and regular rhythm. Distal 2+ pulses. ABDOMEN: Obese, soft, nontender, nondistended. MUSCULOSKELETAL: No clubbing, cyanosis. NEURO: No focal or lateralizing signs. Cranial nerves 2 through 12 grossly within normal limits. PSYCH: Appropriate affect. Alert and oriented to person, place and time. SKIN: Good skin turgor. Well perfused. STUDIES: Barium swallow shows reduction of hiatal hernia ASSESSMENT: 1. Morbid obesity due to excess calories 2. Body mass index of 52, initial to 47.2 3. Gastroesophageal reflux disease 4. Chronic obstructive pulmonary disease 5. Hypothyroidism 6. Depressive disorder 7. Obstructive sleep apnea 8. Pneumonia 9. Osteoarthritis hips 10. Depressive disorder 11. Anxiety disorder 12. Osteoarthritis hips 13. Colon polyps 14. Hypertriglyceridemia 15. Vitamin D deficiency 16. Secondary hyperparathyroidism 17. Zinc deficiency 18. Chronic gastritis with bleeding 19. Status post repair paraesophageal diaphragmatic hiatal hernia PLAN: 1. Bariatric options between a sleeve, band and a Sharon-en-Y gastric bypass were reviewed in detail. The patient elected for a sleeve gastrectomy. Robotic assisted approach described. 2. The [place] [facility] Data was also reviewed with benefits and risks as described. 3. An 8 page second-generation bariatric consent form was reviewed in detail including potential of bleeding, infection, leaks, adequate weight loss, nutritional deficiencies which the patient demonstrated understanding of the risks. 4. A 2 week high-protein low caloric 800 kcal diet described to address hepatomegaly. 5. Preoperative labs including complete metabolic panel and CBC with type and screen recommended. 6. DVT prophylaxis per [place] [facility]. 7. Antibiotic prophylaxis. 8. Inpatient hospitalization anticipated for more than 2 nights. 9. All questions and concerns were addressed with the patient. 10. He is at elevated risk for perioperative complications due to COPD. 11. Overall, patient has expressed understanding of bariatric care including postoperative diet and commitment of lifestyle. Patient should benefit from surgical intervention for correction of his morbid obesity. Past Medical History Past Medical History: COPD, GERD/Reflux, Hyperlipidemia, Sleep Apnea/CPAP/BIPAP, Thyroid Disorder Additional Past Medical History / Comment(s): CPAP use, enlarged thyroid. History of Any Multi-Drug Resistant Organisms: None Reported Past Surgical History: Hernia Repair, Joint Replacement, Orthopedic Surgery Additional Past Surgical History / Comment(s): Left rotator cuff repair, left hip replacment, colonoscopy/polypectomy(benign), right hand surgery, had pins removed, Catatract surgery. Hiatal Hernia Repair. 10-23-2020 Past Anesthesia/Blood Transfusion Reactions: No Reported Reaction Smoking Status: Former smoker - Past Family History Father Family Medical History: Deep Vein Thrombosis (DVT) Additional Family Medical History / Comment(s): . Mother Family Medical History: Eye Disorder, Osteoarthritis (OA) Additional Family Medical History / Comment(s): cataracts Medications and Allergies Home Medications Medication Instructions Recorded Confirmed Type QUEtiapine [SEROquel] 200 mg PO HS 05/29/16 11/22/20 History Budesonide-Formot 160-4.5 Mcg 2 puff INHALATION RT-BID PRN 03/17/17 11/22/20 History [Symbicort 160-4.5 Mcg Inhaler] Levothyroxine Sodium 25 mcg PO DAILY 03/17/17 11/22/20 History Acetaminophen Tab [Tylenol Tab] 1,000 mg PO Q6H PRN #30 tablet 10/24/20 11/22/20 Rx Allergies Allergy/AdvReac Type Severity Reaction Status Date / Time No Known Allergies Allergy Verified 11/22/20 10:41
[~2020-11-27 06:34] MED LIST changes: +ACETAMINOPHEN TAB 500 MG TAB PO PRN; -ACETAMINOPHEN TAB 500 MG TAB PO STA; -CHLORHEXIDINE GLUCONATE 15 ML CUP MUCOUS MEM PRN; -ENOXAPARIN 40 MG/0.4 ML SYRINGE SQ PRN; +GABAPENTIN 300 MG CAP PO PRN; -GABAPENTIN 300 MG CAP PO STA; -HYDROmorphone 0.5 MG/0.5 ML SYRINGE IVP PRN; -LIDOCAINE 1% (10MG/ML) FOR IV START INTRADERMA PRN; +MELOXICAM 7.5 MG TAB PO PRN; -MELOXICAM 7.5 MG TAB PO SCH; +MIDAZOLAM 2 MG/2 ML VIAL IV PRN; -PANTOPRAZOLE 40 MG/10 ML VIAL IVP PRN; -SCOPOLAMINE 1.5MG/72HR PATCH TRANSDERM ONE; -TAMSULOSIN 0.4 MG CAP.ER.24H PO ONE; +TAMSULOSIN 0.4 MG CAP.ER.24H PO PRN
[2020-11-27] MEDS ORDERED: LIDOCAINE 1% (10MG/ML) FOR IV START INTRADERMA ONE (06:55)
[2020-11-27] MEDS ORDERED: ENOXAPARIN 40 MG/0.4 ML SYRINGE SQ PRN (07:00)
[2020-11-27] MEDS ORDERED: CHLORHEXIDINE GLUCONATE 15 ML CUP MUCOUS MEM PRN (07:00)
[2020-11-27] MEDS ORDERED: PANTOPRAZOLE 40 MG/10 ML VIAL IVP PRN (07:00)
[2020-11-27] MEDS ORDERED: fentaNYL (PF) 50 MCG/ML 2 ML AMP IV PRN (07:00)
[2020-11-27] MEDS: LACTATED RINGERS 1,000 ML IV SCH (07:00)
[2020-11-27] MEDS ORDERED: MIDAZOLAM 2 MG/2 ML VIAL IVP ONE (07:43)
[2020-11-27] MEDS ORDERED: fentaNYL (PF) 50 MCG/ML 2 ML AMP IVP ONE (07:43)
[2020-11-27 07:50] LABS: Albumin 4.8 g/dL (3.5-5.0); Calcium 9.8 mg/dL (8.4-10.2); Total Bilirubin 0.8 mg/dL (0.2-1.3); Total Protein 8.2 g/dL (6.3-8.2)
[2020-11-27] MEDS ORDERED: BUPIVACAINE (PF) 0.25% 30 ML VIAL SQ ONE (08:52)
[2020-11-27] MEDS ORDERED: LACTATED RINGERS 1,000 ML IV ONE (08:54)
[2020-11-27] MEDS ORDERED: NALOXONE 0.4 MG/ML 1 ML VIAL IV PRN (10:21)
[2020-11-27] MEDS ORDERED: diphenhydrAMINE 50 MG/ML 1 ML VIAL IVP PRN (10:21)
[2020-11-27] MEDS ORDERED: HYDROmorphone 1 MG/ML 1 ML SYRINGE IVP PRN (10:21)
[2020-11-27] MEDS ORDERED: HYOSCYAMINE ORAL DROPS 1.875 MG/15 ML BOTTLE PO PRN (10:21)
[2020-11-27] MEDS ORDERED: SYMBICORT 160-4.5 MCG INHALER INHALATION PRN (10:27)
--- NOTE | 2020-11-27 10:39 | P.OP ---
Date of Procedure: 11/27/20 Description of Procedure: SURGEON: YVES NIELSEN MD PREOPERATIVE DIAGNOSES: 1. Morbid obesity due to excess calories 2. Body mass index of 52, initial to 46.7 3. Gastroesophageal reflux disease 4. Chronic obstructive pulmonary disease 5. Hypothyroidism 6. Depressive disorder 7. Obstructive sleep apnea 8. Pneumonia 9. Osteoarthritis hips 10. Depressive disorder 11. Anxiety disorder 12. Osteoarthritis hips 13. Colon polyps 14. Hypertriglyceridemia 15. Vitamin D deficiency 16. Secondary hyperparathyroidism 17. Zinc deficiency 18. Chronic gastritis with bleeding 19. Status post repair paraesophageal diaphragmatic hiatal hernia POSTOPERATIVE DIAGNOSES: 1. Morbid obesity due to excess calories 2. Body mass index of 52, initial to 46.7 3. Gastroesophageal reflux disease 4. Chronic obstructive pulmonary disease 5. Hypothyroidism 6. Depressive disorder 7. Obstructive sleep apnea 8. Pneumonia 9. Osteoarthritis hips 10. Depressive disorder 11. Anxiety disorder 12. Osteoarthritis hips 13. Colon polyps 14. Hypertriglyceridemia 15. Vitamin D deficiency 16. Secondary hyperparathyroidism 17. Zinc deficiency 18. Chronic gastritis with bleeding 19. Status post repair paraesophageal diaphragmatic hiatal hernia OPERATION: 1. Robotic assisted daVinci Xi laparoscopic sleeve gastrectomy with 40-Malian bougie, multiport. 2. Intraoperative esophagogastroduodenoscopy. ANESTHESIA: Gen, local anesthetic, regional ESTIMATED BLOOD LOSS: 5 mL SPECIMENS REMOVED: Sleeve gastrectomy COMPLICATIONS: None. FINDINGS: 1. Negative intraoperative esophagogastrojejunoscopy leak test. 2. No recurrent large hiatus hernia. 3. Total of 7 staplers used including 2 - 60 mm black and 5 - 60 mm green obot felisha used to create the gastric sleeve. 4. Sleeve gastrectomy 30 x 5 cm INDICATIONS: Jalen Zaman is a 60-year-old male who comes in with lifelong morbid obesity. He has co-morbidities including hypertensive heart disease, chronic obstructive pulmonary disease with sleep apnea including osteoarthritis both hips secondary to his morbid obesity. He is looking into the sleeve gastrectomy. At height of 5 feet 5.5 inches, his ideal body weight is 149 pounds. He comes in 284 pounds from 313 pounds, 1 month ago. He has lost 29 pounds in 1 month. Body mass index was 52.6, now 46.7. He is 135 pounds overweight. All surgical options for morbid obesity had been described using the [place] bariatric surgery collaborative comorbidity resolution including complication risk score. A second-generation bariatric consent form was described in detail including the possibility of protein malnutrition, leaks, gastric stricture, venous thrombosis, gastroesophageal reflux disease, need for further surgery for which he demonstrated understanding. Benefits and risks of the procedure were described at length. Informed consent was obtained. DESCRIPTION: The patient was brought into the operating room theater. Preoperatively he had received Lovenox subcutaneously for DVT prophylaxis. Additionally he had Peridex oral solution as an oral decontaminant. After general induction, the abdomen was prepped and draped in standard sterile fashion. An Ioban draping was placed along the abdomen. Craven catheter was placed. A robotic da Ryley Xi system was prepped and primed. At 15 cm from the xiphoid, proposed port sites were marked with indelible marker along the anterior axillary line bilaterally, mid axillary line bilaterally with each ports were marked 10 to 15 cm from each other. The assistant producer port was marked along the left lateral abdominal wall. The robotic stapler port was marked for the right midclavicular line. A 5 mm 0 degrees laparoscopic trocar entry was performed along the left upper quadrant. The abdomen was insufflated to 15 mmHg pressure he tolerated well. Diagnostic laparoscopy demonstrated no injury to bowel, viscera, or mesentery. The liver surface was remarkable for fatty liver disease. No injury had occurred to the small bowel or viscera. Along the hiatus no recurrent hiatal hernia was found. Trochars are placed along his prior laparoscopic incisions. A 8 mm port was placed along the right upper abdominal wall after exchanging the 5 mm port. A separate 8 mm port was placed along the left lateral abdominal wall. Please note that the ports were placed at least 20 cm away from the target anatomy. Care was taken to check each robotic arms were safely away from collision with the bed or the patient. At the epigastrium, a medium sized Diallo liver retractor was placed under direct visualization with the Iron Painter Helper placed under the right shoulder of the patient. Next, 12-mm robot stapler port was placed along the right upper quadrant. The camera 8-mm port was maintained along the epigastrium. The patient was repositioned in reverse Trendelenburg position at 21-degrees after lowering the bed. The robot was docked along the right side of the patient. Using a grasper for arm 4, a veseel sealer for arm 3, including grasper for arm 1, the robotic system was docked and primed as described. Instruments were interchanged by the assistant producer for stapler loads. The camera was placed at 30- degrees down. I had sat at the console. The pylorus was identified and 6 cm proximally along the greater curvature of the stomach, the short gastrics were mobilized upwards to the angle of His using a vessel sealer. Hemostasis was excellent during this portion of the procedure. Next, the upper pole of the stomach was adherent to the left savita, which was gently dissected free using atraumatic grasper. The nursing metal organ pipe maker placed a 40-Malian blunted tip bougie into the stomach. Robotic stapler black loads 60 mm x 2 followed by green 60 mm x 5 were used to create the sleeve. Initial firing was across the antrum of the stomach towards the angle of His. The staple line was completely hemostatic and linear without corkscrewing. Hemostasis was excellent. The space from the angularis incisura of the sleeve was approximately 4 cm. I then went to the head of the bed to perform the intraoperative esophagogastroduodenoscopy leak test. The scope was passed along the posterior oropharynx into the stomach where retained food was found along throughout his stomach. No remaining fluid was found within the staple line. The upper pole of the stomach was bathed using normal saline solution. The scope was withdrawn with careful inspection along the staple line for which no leaks were found along the entire length. Additionally, the sleeve was completely hemostatic without any encroachment along the angularis incisura. Its topology was a soft "J". No stricture was encountered upon placement of the scope. The GI tract was desufflated. The patient tolerated this portion of the procedure well. The scope was completely withdrawn. The robot was undocked. I then rescrubbed into case, whereby the irrigation fluid was aspirated from the abdominal cavity. Tisseel fibrin sealant was placed along the entire staple length. Once dried the Diallo liver retractor was removed. Attention was now brought to removal of the specimen. The distal end of the sleeve gastrectomy specimen was brought out through the 12 mm port at the left upper quadrant. The specimen was gently removed en total, corresponding to 30 cm x 5 cm sleeve gastrectomy specimen. No contamination had occurred during this process. All instruments and pneumoperitoneum including irrigation fluid was removed from the abdominal cavity. The 12 mm port site was irrigated with warm normal saline solution and diluted hydron peroxide. The 12-mm port site was reapproximated using 0 Vicryl and Evangelist-Trish of the left upper quadrant. The final incisions were closed using subcuticular interrupted suture of 4-0 Monocryl. Dermabond was applied to the skin once the skin had been cleansed. OptiFoam dressing was placed along the stomach extraction site. At the end of the procedure, needle, sponge, and instrument count was verified correct by the surgical elastic knitter. The patient was taken to the postanesthesia care unit in stable condition. He had tolerated the procedure well. Intraoperative films and findings were reviewed with the patient's family.
[2020-11-27] MEDS: HYDROmorphone 0.5 MG/0.5 ML SYRINGE IVP PRN ×2 (10:57→11:16)
[2020-11-27] MEDS ORDERED: KETOROLAC 15 MG/ML 1 ML VIAL IVP ONE (11:06)
--- NOTE | 2020-11-27 12:44 | P.ANPRN ---
Procedure Note - Anesthesia - Nerve Block Performed Bilateral Transversus Abdominis Single Time Out Performed: Yes Date of Procedure: 11/27/20 Procedure Start Time: 07:42 Procedure Stop Time: 07:48 Location of Patient: PreOp Indication: Acute Post-Operative Pain, Dx/Pain Location, Requested by Surgeon Sedation Type: Sedate with meaningful contact maintained Preparation: Sterile Prep Position: Supine Needle Types: Pajunk Needle Gauge: 21 Ultrasound used to visualize needle placement: No Ultrasound used to observe medication spread: No Injectate: 0.5% Ropivacaine (see comment for volume) Blood Aspirated: No Pain Paresthesia on Injection Noted: No Resistance on Injection: Normal Image Stored and Saved: Yes Events: Uneventful and Well Tolerated
[2020-11-27] MEDS: KETOROLAC 15 MG/ML 1 ML VIAL IVP SCH ×3 (16:09→23:25)
[2020-11-27] MEDS: ACETAMINOPHEN ORAL SUSP 160 MG/5 ML CUP PO SCH (16:09)
[2020-11-27] MEDS: ONDANSETRON 4 MG/2 ML VIAL IVP SCH ×3 (16:10→23:25)
[2020-11-27] MEDS: SIMETHICONE 40 MG/0.6 ML DROPS 2,000 MG/30 ML BOTTLE PO SCH ×3 (16:10→23:26)
[2020-11-27] MEDS: ceFAZolin 3 GM in SODIUM CHLORIDE 0.9% 100 ML IVPB SCH ×2 (17:02→23:24)
[2020-11-27] MEDS: ALBUTEROL NEBULIZED 2.5 MG/3 ML INHALATION SCH ×3 (19:23→19:45)
[2020-11-27] MEDS: 0.9% NACL WITH KCL 20 MEQ/L 1,000 ML IV SCH ×2 (21:35→23:02)
[2020-11-27] MEDS: ACETAMINOPHEN ORAL SUSP (PEDS) 3,840 MG/120 ML BOTTLE PO SCH (23:25)
[2020-11-28] MEDS: LACTATED RINGERS 1,000 ML IV SCH (00:07)
[2020-11-28] MEDS: KETOROLAC 15 MG/ML 1 ML VIAL IVP SCH ×2 (05:11→11:37)
[2020-11-28] MEDS: ACETAMINOPHEN ORAL SUSP (PEDS) 3,840 MG/120 ML BOTTLE PO SCH ×2 (05:12→11:34)
[2020-11-28] MEDS: ONDANSETRON 4 MG/2 ML VIAL IVP SCH ×2 (05:12→11:36)
[2020-11-28] MEDS: SIMETHICONE 40 MG/0.6 ML DROPS 2,000 MG/30 ML BOTTLE PO SCH ×2 (05:13→11:37)
[2020-11-28] MEDS: 0.9% NACL WITH KCL 20 MEQ/L 1,000 ML IV SCH ×3 (05:13→13:55)
[2020-11-28] MEDS ORDERED: LEVOTHYROXINE 25 MCG TAB PO SCH (06:30)
[2020-11-28 07:59] VITALS: RESP 18
[2020-11-28] MEDS: ALBUTEROL NEBULIZED 2.5 MG/3 ML INHALATION SCH ×3 (08:03→16:19)
[2020-11-28] MEDS ORDERED: ENOXAPARIN 40 MG/0.4 ML SYRINGE SQ SCH (09:00)
[2020-11-28 09:41] LABS: Basophils # (A) 0.04 X 10*3/uL (0.00-0.10); Basophils % (A) 0.5 %; Eosinophils # (A) 0.01 X 10*3/uL (0.04-0.35); Eosinophils % (A) 0.1 %; HCT 41.5 % (39.6-50.0); HGB 12.9 g/dL (13.0-17.0); Lymphocytes # (A) 2.02 X 10*3/uL (0.90-5.00); Lymphocytes % (A) 27.3 %; MCH 27.3 pg (27.0-32.0); MCHC 31.1 g/dL (32.0-37.0); MCV 87.9 fL (80.0-97.0); Mean Platelet Volume 10.1 fL (9.5-12.2); Monocytes % (A) 8.1 %; Neutrophils # (A) 4.71 X 10*3/uL (1.80-7.70); Neutrophils % (A) 63.7 %; Platelet Count 196 X 10*3/uL (140-440); RBC 4.72 X 10*6/uL (4.40-5.60); RDW 14.9 % (11.5-14.5)
[2020-11-28 09:58] LABS: African American GFR (CKD) 75.2 (60.0-200.0); Calcium 8.8 mg/dL (8.7-10.3); Magnesium 2.1 mg/dL (1.5-2.4); Non-African American GFR(CKD) 64.9 (60.0-200.0); Potassium 4.1 mmol/L (3.5-5.5)
--- NOTE | 2020-11-28 11:08 | FL ---
SINGLE CONTRAST UPPER GI EXAMINATION: CLINICAL HISTORY: 60-year-old male postop bariatric surgery. Also patient with history of hiatal her javier repair 6 weeks ago. TECHNIQUE: Single contrast exam performed with 50 ml Isovue-370 contrast. Total fluoroscopy time: 1 minute 49 seconds. Total images: 22. FINDINGS: The patient swallowed oral contrast without difficulty or delay. Esophageal peristalsis and motility are within normal limits. There is mild delay in passage of contrast from the distal esophagus into the stomach. Intermittent episodes of intraesophageal reflux are encountered. As patient ingests mor e contrast, there is passage into the stomach with postsurgical change of sleeve gastrectomy demonstr ated. There is good flow of contrast along the gastric sleeve, and no evidence of contrast extravasat ion to suggest leak. No postoperative free air is seen. IMPRESSION: 1. Status post sleeve gastrectomy. Very mild hang-up of contrast at the level of the GE junction prob ably secondary to mild postsurgical edema. 2. No evidence for leak or postsurgical free air.
[2020-11-28 12:48] VITALS: BMI 44.6
[2020-11-28 14:49] VITALS: BP 158/72; PULSE 64; TEMP 98.1
--- NOTE | 2020-11-28 15:02 | P.DS ---
Providers Date of admission: 11/27/20 06:34 Expected date of discharge: 11/28/20 Attending physician: Verenice Brady Primary care physician: Buddy Alcazar Hospital Course: Discharge diagnosis 1. Morbid obesity due to excess calories 2. Body mass index of 52, initial to 46.7 3. Gastroesophageal reflux disease 4. Chronic obstructive pulmonary disease 5. Hypothyroidism 6. Depressive disorder 7. Obstructive sleep apnea 8. Pneumonia 9. Osteoarthritis hips 10. Depressive disorder 11. Anxiety disorder 12. Osteoarthritis hips 13. Colon polyps 14. Hypertriglyceridemia 15. Vitamin D deficiency 16. Secondary hyperparathyroidism 17. Zinc deficiency 18. Chronic gastritis with bleeding 19. Status post repair paraesophageal diaphragmatic hiatal hernia Hospital course Jalen Zaman is a 60-year-old male who comes in with lifelong morbid obesity. He has co-morbidities including hypertensive heart disease, chronic obstructive pulmonary disease with sleep apnea including osteoarthritis both hips secondary to his morbid obesity. Patient is status post Robotic assisted daVinci Xi laparoscopic sleeve gastrectomy and Intraoperative esophagogastroduodenoscopy. Upper GI shows mild hang-up of contrast at the level of the GE junction probably secondary to mild postsurgical edema. No evidence of leak or postsurgical free air. Patient denies any difficulty with swallowing. He is tolerating his bariatric clear liquid diet. His pain is controlled. He is passing gas. He has been up and ambulating. Denies any difficulty urinating. He is afebrile. He is stable for discharge. Physician Food Service Agent note has been reviewed by physician. Signing provider agrees with the documented findings, assessment, and plan of care. Patient Condition at Discharge: Stable Plan - Discharge Summary Discharge Rx Participant: No New Discharge Prescriptions: New Simethicone 40 mg/0.6 ml Drops [Mylicon Drops] 40 mg PO PCHS PRN #30 ml PRN Reason: Gas Omeprazole [PriLOSEC] 40 mg PO DAILY #30 capsule.dr Acetaminophen Oral Susp [Tylenol] 1,000 mg PO Q4-6H PRN #400 ml PRN Reason: Pain bisacodyL [Dulcolax] 5 mg PO DAILY PRN #10 tablet.dr PRN Reason: Constipation Ondansetron Odt [Zofran Odt] 4 mg PO Q8HR PRN #9 tab PRN Reason: Nausea Continue QUEtiapine [SEROquel] 200 mg PO HS Budesonide-Formot 160-4.5 Mcg [Symbicort 160-4.5 Mcg Inhaler] 2 puff INHALATION RT-BID PRN PRN Reason: Shortness Of Breath Levothyroxine Sodium 25 mcg PO DAILY Discontinued Acetaminophen Tab [Tylenol Tab] 1,000 mg PO Q6H PRN #30 tablet PRN Reason: Pain Discharge Medication List QUEtiapine [SEROquel] 200 mg PO HS 05/29/16 [History] Budesonide-Formot 160-4.5 Mcg [Symbicort 160-4.5 Mcg Inhaler] 2 puff INHALATION RT-BID PRN 03/17/17 [History] Levothyroxine Sodium 25 mcg PO DAILY 03/17/17 [History] Acetaminophen Oral Susp [Tylenol] 1,000 mg PO Q4-6H PRN #400 ml 11/28/20 [Rx] Omeprazole [PriLOSEC] 40 mg PO DAILY #30 capsule. 11/28/20 [Rx] Ondansetron Odt [Zofran Odt] 4 mg PO Q8HR PRN #9 tab 11/28/20 [Rx] Simethicone 40 mg/0.6 ml Drops [Mylicon Drops] 40 mg PO PCHS PRN #30 ml 11/28/20 [Rx] bisacodyL [Dulcolax] 5 mg PO DAILY PRN #10 tablet. 11/28/20 [Rx] [place] [facility]Ref[place] [facility] [place] [facility] [place] [facility] 10:00 am Activity/Diet/Wound Care/Special Instructions: Wear abdominal binder at all times for comfort. No lifting over 4 pounds in 4 weeks until December 25. May shower. No bath tub soaks for two weeks until December 11 Use ice along incisions for the today to prevent swelling. Cut or crush all pills to the size smaller than a TicTac No straws or carbonated beverages Discharge Disposition: HOME SELF-CARE
[2020-11-29] MEDS ORDERED: bisacodyL 5 MG TABLET.DR PO PRN (08:00)
== END 2020-11-28 16:52 | disposition home or self-care (01) | DRG 620 ==
LOC: 2ORMAIN 06:34 → 4SSUR 15:04
PROVIDERS: ADMIT Surgery Plastic and Reconstructive Surgery; ATTEND Surgery Plastic and Reconstructive Surgery
PROC: 0DJ08ZZ Inspection of Upper Intestinal Tract, Via Natural or Artificial Opening Endoscopic (ICD-10-PCS; 2020-11-27)
PROC: 8E0W4CZ Robotic Assisted Procedure of Trunk Region, Percutaneous Endoscopic Approach (ICD-10-PCS; 2020-11-27)
PROC: 0DB64Z3 Excision of Stomach, Percutaneous Endoscopic Approach, Vertical (ICD-10-PCS; principal; 2020-11-27 08:15)
DX: E66.01 Morbid (severe) obesity due to excess calories (principal); N25.81 Secondary hyperparathyroidism of renal origin; I11.9 Hypertensive heart disease without heart failure; G47.33 Obstructive sleep apnea (adult) (pediatric); M16.0 Bilateral primary osteoarthritis of hip; Z68.43 Body mass index [BMI] 50.0-59.9, adult; K21.9 Gastro-esophageal reflux disease without esophagitis; E03.9 Hypothyroidism, unspecified; F32.9 Major depressive disorder, single episode, unspecified; F41.9 Anxiety disorder, unspecified; Z86.010 Personal history of colon polyps; Z87.01 Personal history of pneumonia (recurrent); Z96.642 Presence of left artificial hip joint; E55.9 Vitamin D deficiency, unspecified; E60 Dietary zinc deficiency; E78.1 Pure hyperglyceridemia; K29.50 Unspecified chronic gastritis without bleeding; Z87.891 Personal history of nicotine dependence; Z79.51 Long term (current) use of inhaled steroids; Z79.890 Hormone replacement therapy; J44.9 Chronic obstructive pulmonary disease, unspecified; K76.0 Fatty (change of) liver, not elsewhere classified
CPT/HCPCS: 36415; 64488; 74240; 80051; 80053; 82310; 82565; 83735; 84100; 84520; 85025; 86850; 86900; 86901; 88307; 94640; 94760; 94762

== ENCOUNTER → 2020-11-30 | Outpatient (CLI) | payer MEDICARE ==
--- NOTE | 2020-11-30 10:56 | P.PN ---
Subjective Progress Note Date: 11/30/20 DATE OF SERVICE: 11/30/2020 CHIEF COMPLAINT: Status post sleeve gastrectomy HISTORY OF PRESENT ILLNESS: Jalen Zaman is a 60-year-old male who is status post paraesophageal hiatal hernia repair 10/23/2020. He is now status post sleeve gastrectomy 11/27/2020. He is postoperative day 2. He is tolerating diet. He presents for weight loss. He has lost weight of over 30 pounds in 2 months. He is following instructions verbally. No reports of abdominal pain. No shortness of breath. He denies gastroesophageal reflux disease. No reports of dysphagia. At height of 5 feet 5.5 inches, his ideal body weight is 149 pounds. Highest weight is 320 pounds, BMI 52.6. He comes in 285 pounds from 298 pounds, 1 month ago. He has lost 13 pounds in 1 month. Body mass index was 52.6, now 46.9. Lifetime weight loss of 35 pounds. Percent excess weight loss lifetime is 20 %. He is 136 pounds overweight. PHYSICAL EXAM: VITAL SIGNS: Height 5 foot 5.5 inches, weight 285 pounds. BMI 46.9 Vital Signs Temp 99.1 F 11/30/20 11:43 Pulse 80 11/30/20 11:43 Resp 16 11/30/20 11:43 BP 136/89 11/30/20 11:43 Pulse Ox GENERAL: Well-developed in no acute distress. HEENT: No scleral icterus. Extraocular movements grossly intact. Hears conversational speech. No nasal drainage. NECK: Supple without lymphadenopathy. CHEST: Nonlabored respirations with equal bilateral excursions. CARDIOVASCULAR: Regular rate and regular rhythm. Distal 2+ pulses. ABDOMEN: Incisions clean dry and intact. No signs of infection of incision. MUSCULOSKELETAL: No clubbing, cyanosis. NEURO: No focal or lateralizing signs. Cranial nerves 2 through 12 grossly within normal limits. PSYCH: Appropriate affect. Alert and oriented to person, place and time. SKIN: Good skin turgor. Well perfused. ASSESSMENT: 1. Morbid obesity due to excess calories 2. Body mass index of 52, initial to 46.9 3. Gastroesophageal reflux disease 4. Chronic obstructive pulmonary disease 5. Hypothyroidism 6. Depressive disorder 7. Obstructive sleep apnea 8. Pneumonia 9. Osteoarthritis hips 10. Depressive disorder 11. Anxiety disorder 12. Osteoarthritis hips 13. Colon polyps 14. Hypertriglyceridemia 15. Vitamin D deficiency 16. Secondary hyperparathyroidism 17. Zinc deficiency 18. Chronic gastritis with bleeding 19. Status posst paraesophageal diaphragmatic hiatal hernia repair 20. Illiteracy 21. Status post hiatal hernia repair PLAN: 1. He is tolerating diet. Follow-up in one week. 2. Advance to stage II diet full liquid protein intake over 75 g daily.
[2020-11-30 11:46] VITALS: BP 136/89; PULSE 80; RESP 16; TEMP 99.1; BMI 46.8
== END ==
LOC: BARWHC3 09:54
PROVIDERS: ATTEND Surgery Plastic and Reconstructive Surgery
DX: E66.01 Morbid (severe) obesity due to excess calories (principal); K21.9 Gastro-esophageal reflux disease without esophagitis; J44.9 Chronic obstructive pulmonary disease, unspecified; E03.9 Hypothyroidism, unspecified; F32.9 Major depressive disorder, single episode, unspecified; G47.33 Obstructive sleep apnea (adult) (pediatric); J18.9 Pneumonia, unspecified organism; M16.0 Bilateral primary osteoarthritis of hip; F41.9 Anxiety disorder, unspecified; K63.5 Polyp of colon; E78.1 Pure hyperglyceridemia; E55.9 Vitamin D deficiency, unspecified; N25.81 Secondary hyperparathyroidism of renal origin; K29.51 Unspecified chronic gastritis with bleeding; E60 Dietary zinc deficiency; Z98.84 Bariatric surgery status; Z68.42 Body mass index [BMI] 45.0-49.9, adult; Z55.0 Illiteracy and low-level literacy; Z98.890 Other specified postprocedural states
CPT/HCPCS: 97803; G0463; 99211

== ENCOUNTER → 2020-12-06 | Outpatient (CLI) | payer MEDICARE ==
[2020-12-06 15:26] VITALS: BP 126/86; PULSE 80; RESP 16; TEMP 99.2; BMI 45.7
--- NOTE | 2020-12-06 16:02 | P.PN ---
Subjective Progress Note Date: 12/06/20 No SOB, execellent blood pressure. Meet with technical assoc. On track to loose 100 pounds May 2021. Does not want COVID vaccine. Follow up week December 27. No dysphagia. Objective - Vital Signs Vital signs: Vital Signs Temp 99.2 F 12/06/20 15:21 Pulse 80 12/06/20 15:21 Resp 16 12/06/20 15:21 BP 126/86 12/06/20 15:21 Pulse Ox Intake & Output 12/05/20 12/06/20 12/06/20 18:59 06:59 18:59 Weight 126.552 kg
== END ==
LOC: BARWHC3 14:39
PROVIDERS: ATTEND Surgery Plastic and Reconstructive Surgery
DX: E66.01 Morbid (severe) obesity due to excess calories (principal); Z68.41 Body mass index [BMI] 40.0-44.9, adult; Z87.891 Personal history of nicotine dependence
CPT/HCPCS: 99211

== ENCOUNTER → 2020-12-27 | Outpatient (CLI) | payer MEDICARE ==
[2020-12-27 16:10] VITALS: BP 127/90; PULSE 67; RESP 16; TEMP 98.9; BMI 44.7
--- NOTE | 2020-12-27 16:32 | P.PN ---
Subjective Progress Note Date: 12/27/20 DATE OF SERVICE: 12/27/2020 CHIEF COMPLAINT: Status post sleeve gastrectomy HISTORY OF PRESENT ILLNESS: Jalen Zaman is a 60-year-old male who is status post paraesophageal hiatal hernia repair 10/23/2020. He is now status post sleeve gastrectomy 11/27/2020. He is 1 month out. She denies any ga stroesophageal reflux disease. He denies hunger. Get labs. He is getting too much protein per dietitian. He has no complaints about his diet. At height of 5 feet 5.5 inches, his ideal body weight is 149 pounds. Highest weight is 320 pounds, BMI 52.6. He comes in 272 pounds from 278 pounds, 3 weeks ago. He has lost 6 pounds in 3 weeks. Body mass index was 52.6, now 44.7. Lifetime weight loss of 48 pounds. Percent excess weight loss lifetime is 28 %. He is 123 pounds overweight. PHYSICAL EXAM: VITAL SIGNS: Height 5 foot 5.5 inches, weight 272 pounds. BMI 44.7 Vital Signs Temp 98.9 F 12/27/20 16:08 Pulse 67 12/27/20 16:08 Resp 16 12/27/20 16:08 BP 127/90 12/27/20 16:08 Pulse Ox GENERAL: Well-developed in no acute distress. HEENT: No scleral icterus. Extraocular movements grossly intact. Hears conversational speech. No nasal drainage. NECK: Supple without lymphadenopathy. CHEST: Nonlabored respirations with equal bilateral excursions. CARDIOVASCULAR: Regular rate and regular rhythm. Distal 2+ pulses. ABDOMEN: Nontender. No hernia. MUSCULOSKELETAL: No clubbing, cyanosis. NEURO: No focal or lateralizing signs. Cranial nerves 2 through 12 grossly within normal limits. PSYCH: Appropriate affect. Alert and oriented to person, place and time. SKIN: Good skin turgor. Well perfused. ASSESSMENT: 1. Morbid obesity due to excess calories 2. Body mass index of 52, initial to 44.7 3. Gastroesophageal reflux disease 4. Chronic obstructive pulmonary disease 5. Hypothyroidism 6. Depressive disorder 7. Obstructive sleep apnea 8. Pneumonia 9. Osteoarthritis hips 10. Depressive disorder 11. Anxiety disorder 12. Osteoarthritis hips 13. Colon polyps 14. Hypertriglyceridemia 15. Vitamin D deficiency 16. Secondary hyperparathyroidism 17. Zinc deficiency 18. Chronic gastritis with bleeding 19. Status posst paraesophageal diaphragmatic hiatal hernia repair 20. Illiteracy 21. Status post sleeve gastrectomy PLAN: 1. Recommend bariatric labs. 2. Follow up 3 month post op. Objective - Vital Signs Vital signs: Vital Signs Temp 98.9 F 12/27/20 16:08 Pulse 67 12/27/20 16:08 Resp 16 12/27/20 16:08 BP 127/90 12/27/20 16:08 Pulse Ox Intake & Output 12/26/20 12/27/20 12/27/20 18:59 06:59 18:59 Weight 123.831 kg
== END | disposition home or self-care (01) ==
LOC: BARWHC3 14:36
PROVIDERS: ATTEND Surgery Plastic and Reconstructive Surgery
DX: E66.01 Morbid (severe) obesity due to excess calories (principal); Z98.84 Bariatric surgery status; Z68.41 Body mass index [BMI] 40.0-44.9, adult; G47.33 Obstructive sleep apnea (adult) (pediatric); F41.9 Anxiety disorder, unspecified; E03.9 Hypothyroidism, unspecified; E55.9 Vitamin D deficiency, unspecified; E78.1 Pure hyperglyceridemia; F32.9 Major depressive disorder, single episode, unspecified; J44.0 Chronic obstructive pulmonary disease with (acute) lower respiratory infection; K21.9 Gastro-esophageal reflux disease without esophagitis; M16.0 Bilateral primary osteoarthritis of hip; N25.81 Secondary hyperparathyroidism of renal origin
CPT/HCPCS: 97803; G0463; 99211

== ENCOUNTER → 2021-01-16 | Outpatient (CLI) | payer MEDICARE ==
[2021-01-16 12:35] LABS: INR 0.9 (<1.2); Prothrombin Time 10.2 sec (9.0-12.0)
[2021-01-16 12:36] LABS: Partial Thromboplastin Time 25.7 sec (22.0-30.0)
[2021-01-16 20:59] LABS: % Iron Saturation 26.9 (15.00-50.00); African American GFR (CKD) 93.7 (60.0-200.0); Albumin 4.5 g/dL (3.80-4.90); Albumin/Globulin Ratio 1.88 (1.60-3.17); Anion Gap 8.3 mmol/L (4.00-12.00); Calcium 9.7 mg/dL (8.7-10.3); Carbon Dioxide 25.7 mmol/L (21.6-31.8); Chol/HDL Ratio 3.58; Globulin 2.4 g/dL (1.6-3.3); LDL Cholesterol,Calculated 115.6 mg/dL (0.0-131.0); Non-African American GFR(CKD) 80.9 (60.0-200.0); Phosphorus 2.8 mg/dL (2.4-5.1); Potassium 3.9 mmol/L (3.5-5.5); Total Bilirubin 0.5 mg/dL (0.3-1.2); Total Protein 6.9 g/dL (6.2-8.2); VLDL Calculation 21.4 mg/dL (5.00-40.00)
[2021-01-16 21:10] LABS: Ferritin 56.3 ng/mL (22.0-322.0); Folate, Serum 5.3 ng/mL
[2021-01-16 21:35] LABS: HCT 44.7 % (39.6-50.0); HGB 14.2 g/dL (13.0-17.0); MCH 27.8 pg (27.0-32.0); MCHC 31.8 g/dL (32.0-37.0); MCV 87.6 fL (80.0-97.0); Mean Platelet Volume 10.5 fL (9.5-12.2); Platelet Count 231 X 10*3/uL (140-440); RDW 15.2 % (11.5-14.5)
[2021-01-16 22:37] LABS: Hemoglobin A1C 5.4 % (4.0-6.0)
[2021-01-17 12:56] LABS: Zinc, Serum 64 ug/dL (60-130)
[2021-01-18 06:31] LABS: Vit B1(Thiamine) 52 ug/L (38-122)
[2021-01-18 06:38] LABS: Vitamin A 37 ug/dL (38-106)
[2021-01-19 00:18] LABS: Selenium 112 mcg/L (63-160)
== END | disposition home or self-care (01) ==
LOC: LABWHC1 11:23
PROVIDERS: ATTEND Surgery Plastic and Reconstructive Surgery
DX: E66.01 Morbid (severe) obesity due to excess calories (principal); E89.1 Postprocedural hypoinsulinemia; D50.8 Other iron deficiency anemias; K90.89 Other intestinal malabsorption; E55.9 Vitamin D deficiency, unspecified; K74.1 Hepatic sclerosis; N19 Unspecified kidney failure; K50.90 Crohn's disease, unspecified, without complications; Z98.84 Bariatric surgery status
CPT/HCPCS: 36415; 80053; 80061; 82306; 82525; 82607; 82728; 82746; 83036; 83540; 83550; 83735; 83970; 84100; 84134; 84255; 84425; 84443; 84590; 84630; 85027; 85610; 85730

== ENCOUNTER → 2021-02-28 | Outpatient (CLI) | payer MEDICARE ==
[2021-02-28 14:22] VITALS: BP 128/85; PULSE 61; RESP 18; TEMP 98.4; BMI 44.1
--- NOTE | 2021-02-28 14:25 | P.PN ---
Subjective Progress Note Date: 02/28/21 He is eating junk food again. He has decreased weight loss. He is eating out of boredom. He has a big dog over 150 pounds. He denies hunger. NO GERD. He is breathing well. He is 3 months out. He is not taking multivitamin. Recommend start hobby. He had worked on engines. He misses his motorcycle. Recommend labs. He stays in the house often. Recommend get out the house. Objective - Vital Signs Vital signs: Intake & Output 02/27/21 02/28/21 02/28/21 18:59 06:59 18:59 Weight 122.016 kg
[2021-02-28 15:39] LABS: HCT 47.3 % (39.0-53.0); HGB 15.3 gm/dL (13.0-17.5); MCH 28.1 pg (25.0-35.0); MCHC 32.3 g/dL (31.0-37.0); MCV 87.1 fL (80.0-100.0); Mean Platelet Volume 6.8; Platelet Count 209 k/uL (150-450); RBC 5.43 m/uL (4.30-5.90); WBC 7.9 k/uL (3.8-10.6)
[2021-02-28 15:48] LABS: INR 0.9 (<1.2); Partial Thromboplastin Time 26.7 sec (22.0-30.0); Prothrombin Time 10.2 sec (9.0-12.0)
[2021-03-01 00:14] LABS: Hemoglobin A1C 5.3 % (4.0-6.0)
[2021-03-01 01:23] LABS: % Iron Saturation 26.38 (15.00-50.00); African American GFR (CKD) 93.1 (60.0-200.0); Albumin 4.7 g/dL (3.80-4.90); Albumin/Globulin Ratio 1.74 (1.60-3.17); Anion Gap 10.8 mmol/L (4.00-12.00); Calcium 9.8 mg/dL (8.7-10.3); Carbon Dioxide 26.2 mmol/L (21.6-31.8); Chol/HDL Ratio 3.63; Globulin 2.7 g/dL (1.6-3.3); LDL Cholesterol,Calculated 113.4 mg/dL (0.0-131.0); Magnesium 2.1 mg/dL (1.5-2.4); Non-African American GFR(CKD) 80.3 (60.0-200.0); Phosphorus 3.7 mg/dL (2.4-5.1); Potassium 4.5 mmol/L (3.5-5.5); Total Bilirubin 0.5 mg/dL (0.3-1.2); Total Protein 7.4 g/dL (6.2-8.2); VLDL Calculation 36.6 mg/dL (5.00-40.00)
[2021-03-01 01:31] LABS: Ferritin 62.3 ng/mL (22.0-322.0)
[2021-03-01 13:33] LABS: Zinc, Serum 58 ug/dL (60-130)
[2021-03-02 09:02] LABS: Vitamin A 49 ug/dL (38-106)
[2021-03-02 09:07] LABS: Vit B1(Thiamine) 56 ug/L (38-122)
[2021-03-07 17:08] LABS: Selenium 133 mcg/L (63-160)
== END | disposition home or self-care (01) ==
LOC: BARWHC3 14:14
PROVIDERS: ATTEND Surgery Plastic and Reconstructive Surgery
DX: E66.01 Morbid (severe) obesity due to excess calories (principal); Z68.41 Body mass index [BMI] 40.0-44.9, adult
CPT/HCPCS: 84255; 84134; 84425; 80061; 80053; 82607; 82728; 82525; 82746; 83540; 83550; 83735; 84100; 84443; 84590; 84630; 85027; 85610; 85730; 82306; 83970; 83036; 97803; G0463; 99211